=== PATIENT | male | born 1945 | race Caucasian/White ===

== ENCOUNTER 2020-09-16 15:07 | Inpatient (IN) | payer MEDICARE ==
[~2020-09-16] VITALS: Ht 177.8 cm; Wt 119.8 kg
[~2020-09-16 15:07] MED LIST: HYDACE5 PO; LANS30EC; MERC50; METTREX2.5; WARF10 PO; [UNRECOGNIZED DRUG - OTHER]
[2020-09-16 15:38] LABS: BASOPHILS ABSOLUTE AUTO 0.02 K/mm3 (0.00-0.23); BASOPHILS PERCENT AUTO 0 % (0-2); EOSINOPHILS ABSOLUTE AUTO 0.01 K/mm3 (0.00-0.68); EOSINOPHILS PERCENT AUTO 0 % (0-6); Hematocrit 42.1 % (37.0-53.0); Hemoglobin 13.4 g/dL (13.5-17.5); IMMATURE GRAN ABSOLUTE AUTO 0.08 K/mm3 (0.00-0.10); IMMATURE GRAN PERCENT AUTO 1 % (0-1); LYMPHOCYTES PERCENT AUTO 13 % (21-46); MONOCYTES ABSOLUTE AUTO 0.45 K/mm3 (0.16-1.47); MONOCYTES PERCENT AUTO 6 % (4-13); Mean Corpuscular HGB 28.2 pg (26.0-34.0); Mean Corpuscular HGB Conc 31.8 g/dL (31.5-36.5); Mean Corpuscular Volume 89 fL (80-100); Mean Platelet Volume 11.4 fL (9.1-12.4); NEUTROPHILS ABSOLUTE AUTO 6.03 K/mm3 (1.96-9.15); NEUTROPHILS PERCENT AUTO 79 % (41-73); Platelet Count 197 K/mm3 (150-400); RDW Coefficient Variation 14.6 % (11.7-14.2); Red Blood Cell Count 4.75 M/mm3 (4.30-5.90); White Blood Cell Count 7.59 K/mm3 (4.00-11.30)
[2020-09-16 16:00] LABS: Alanine Aminotransfer (ALT/SGP 37 U/L (12-78); Albumin, Blood 2.9 g/dL (3.4-5.0); Albumin/Globulin Ratio 0.8 (0.8-1.8); Alk Phos 61 U/L (50-136); Anion Gap 7 mmol/L (6-16); Aspartate Aminotrans (AST/SGOT 69 U/L (12-37); Bilirubin, Total 1.3 mg/dL (0.1-1.0); Blood Urea Nitrogen 23 mg/dL (8-24); Bun/Creatinine Ratio 20.7 (12.0-20.0); CO2, Blood 25 mmol/L (21-32); Chloride, Blood 105 mmol/L (98-108); Creatinine, Blood 1.11 mg/dL (0.60-1.20); Globulin, Blood 3.5 g/dL (2.2-4.0); Glomerular Filtration Rate >60 (60-); Glucose, Blood 104 mg/dL (70-99); Potassium, Blood 4.2 mmol/L (3.5-5.5); Sodium, Blood 137 mmol/L (136-145); Total Protein, Blood 6.4 g/dL (6.4-8.2)
[2020-09-16] MEDS ORDERED: METO100ER PO (18:20)
[2020-09-16] MEDS ORDERED: ZOCOR20 MG PO (18:21)
[2020-09-16 19:16] LABS: Prothrombin Time Results 63.4 Sec (9.7-11.5)
[2020-09-16 19:22] LABS: International Normalized Ratio 6.59
[2020-09-16] MEDS ORDERED: AMOX500 PO (19:25)
--- NOTE | 2020-09-17 01:03 | NUR ---
UPDATE DR MURILLO WAS NOTIFED AT APPROX 9662 THAT PATIENT'S HEART RATE WAS TRENDING IN THE 140'S. ORDER RECEIVED.
[2020-09-17 04:38] LABS: BASOPHILS ABSOLUTE AUTO 0.01 K/mm3 (0.00-0.23); BASOPHILS PERCENT AUTO 0 % (0-2); EOSINOPHILS ABSOLUTE AUTO 0.01 K/mm3 (0.00-0.68); EOSINOPHILS PERCENT AUTO 0 % (0-6); Hematocrit 40.6 % (37.0-53.0); Hemoglobin 13.1 g/dL (13.5-17.5); IMMATURE GRAN ABSOLUTE AUTO 0.08 K/mm3 (0.00-0.10); IMMATURE GRAN PERCENT AUTO 1 % (0-1); LYMPHOCYTES ABSOLUTE AUTO 0.67 K/mm3 (0.84-5.20); LYMPHOCYTES PERCENT AUTO 8 % (21-46); MONOCYTES ABSOLUTE AUTO 0.31 K/mm3 (0.16-1.47); MONOCYTES PERCENT AUTO 4 % (4-13); Mean Corpuscular HGB 28.2 pg (26.0-34.0); Mean Corpuscular HGB Conc 32.3 g/dL (31.5-36.5); Mean Corpuscular Volume 87 fL (80-100); Mean Platelet Volume 11.1 fL (9.1-12.4); NEUTROPHILS ABSOLUTE AUTO 7.31 K/mm3 (1.96-9.15); NEUTROPHILS PERCENT AUTO 87 % (41-73); Platelet Count 203 K/mm3 (150-400); RDW Coefficient Variation 14.6 % (11.7-14.2); RDW Standard Deviation 47.4 fL (35.1-46.3); Red Blood Cell Count 4.65 M/mm3 (4.30-5.90); White Blood Cell Count 8.39 K/mm3 (4.00-11.30)
[2020-09-17 04:58] LABS: Alanine Aminotransfer (ALT/SGP 38 U/L (12-78); Albumin, Blood 2.9 g/dL (3.4-5.0); Albumin/Globulin Ratio 0.9 (0.8-1.8); Alk Phos 64 U/L (50-136); Anion Gap 10 mmol/L (6-16); Aspartate Aminotrans (AST/SGOT 60 U/L (12-37); Bilirubin, Total 1.2 mg/dL (0.1-1.0); Blood Urea Nitrogen 19 mg/dL (8-24); Bun/Creatinine Ratio 19.2 (12.0-20.0); CO2, Blood 22 mmol/L (21-32); Calcium, Blood 8.1 mg/dL (8.5-10.1); Chloride, Blood 107 mmol/L (98-108); Creatinine, Blood 0.99 mg/dL (0.60-1.20); Globulin, Blood 3.4 g/dL (2.2-4.0); Glomerular Filtration Rate >60 (60-); Glucose, Blood 148 mg/dL (70-99); Potassium, Blood 4.2 mmol/L (3.5-5.5); Sodium, Blood 139 mmol/L (136-145); Total Protein, Blood 6.3 g/dL (6.4-8.2)
--- NOTE | 2020-09-17 07:34 | NUR ---
ADMIT NOTE/SHIFT SUMMARY PATIENT ARRIVED TO THE UNIT EARLIER THIS SHIFT FROM THE ER, PATIENT WAS ABLE TO TRANSFER SELF FROM THE GURNEY TO THE BED WITH SBA. PATIENT ON 6L UPON ARRIVAL TO THE UNIT. PATIENT SETTLED IN AND ORIENTED TO THE ROOM, UNIT, AND CALL LIGHT. PATIENT APPEARED TO NAP ON AND OFF THROUGHOUT THE NIGHT. PATIENT WOULD OCCATIONALLY ACCIDENTLY REMOVE O2, PATIENT ABLE TO REPLACE ON HIS OWN OR STAFF WOULD ASSIST EACH TIME. CONTINUOUS BIOX IN PLACE. PATIENT VERY CHEERFL AND PLEASENT. PATIENT REMAINS ON 6L O2. CARDIZEM GTT AT 20 PER ORDERS. HEART RATE HAS APPEARED TO DECREASE TO THE ONE TEENS. REPORT GIVEN TO ONCOMING RN.
--- NOTE | 2020-09-17 18:43 | NUR ---
SUMMARY PT HAS BEEN A&O X4. HE IS CURRENTLY ON HIGH DANIELLE NC @ 8L, SPO2 91% WHICH IS AN INCREASE FROM 6L THIS AM. RESP LABORED WITH ACTIVITY,TACHYPNEA NOTED AT REST, COARSE, DIMINISHED THROUGH BASES. PRONE POSITION STRONGLY ENC, PT REFUSED AT THIS TIME, EDUCATION PROVIDED. PT DENIES SOB/CHEST PRESSURE OR PAIN. HR REMAINS BETWEEN 90-130 PER MONITOR. CARDIZEM GTT INFUSING @ CONTINUED RATE OF 20 MG/HR, VSS. SCANT AMOUNT OF [place] BLOOD REPORTED BY PT ON TISSUE AFTER "COUGHING" PT ENC TO SAVE ALL BLOODY TISSUE FOR THE NURSE TO EVALUATE. PT IS TOLERATING SMALL AMOUNTS OF PO INTAKE. ZOFRAN GIVEN X1 PER PT REQUEST. WCTM AT THIS TIME. REPORT WILL BE GIVEN TO NOC RN. CALL LIGHT IN REACH.
--- NOTE | 2020-09-18 00:53 | NUR ---
UPDATE PATIENT'S OXYGENATION REQUIRMENTS HAVE BEEN INCREASING THROUGHOUT THE NIGHT. PATIENT CURRENTLY ON 15L VIA HIGH FLOW N/C WITH OXYGEN SATURATION AT 88-89%. RESPIRTORY THERAPY PUTTING PATIENT ON AN AIRVO. DR DC NOTIFIED OF THE TRANSITION TO AIRVO. PATIENT CURRENTLY RESTING IN BED, ATTEMPTING TO SLEEP.
[2020-09-18 04:31] LABS: Alanine Aminotransfer (ALT/SGP 38 U/L (12-78); Albumin, Blood 2.7 g/dL (3.4-5.0); Albumin/Globulin Ratio 0.9 (0.8-1.8); Alk Phos 60 U/L (50-136); Anion Gap 8 mmol/L (6-16); Aspartate Aminotrans (AST/SGOT 45 U/L (12-37); Bilirubin, Total 0.9 mg/dL (0.1-1.0); Blood Urea Nitrogen 28 mg/dL (8-24); Bun/Creatinine Ratio 25.9 (12.0-20.0); CO2, Blood 24 mmol/L (21-32); Calcium, Blood 7.9 mg/dL (8.5-10.1); Chloride, Blood 106 mmol/L (98-108); Creatinine, Blood 1.08 mg/dL (0.60-1.20); Glomerular Filtration Rate >60 (60-); Glucose, Blood 211 mg/dL (70-99); Potassium, Blood 3.8 mmol/L (3.5-5.5); Sodium, Blood 138 mmol/L (136-145); Total Protein, Blood 5.7 g/dL (6.4-8.2)
[2020-09-18 04:33] LABS: Prothrombin Time Results 74.1 Sec (9.7-11.5)
[2020-09-18 04:36] LABS: International Normalized Ratio 7.78
--- NOTE | 2020-09-18 05:33 | NUR ---
CRITICAL INR DR DC NOTIFIED OF PATIENT'S CRITICAL INR LEVEL THIS MORNING. DR DC SATED THAT BLOOD THINNERS WILL CONTINUE TO BE HELD. NO OTHER ORDERS GIVEN AT THIS TIME.
--- NOTE | 2020-09-18 07:23 | NUR ---
SHIFT SUMMARY PATIENT PLEASENT AND COOPERATIVE THROUGHOUT THE NIGHT. PATIENT UP IN THE RECLINER FOR SEVERAL HOURS AT THE BEGINNING OF THE SHIFT, THEN MOVED BACK TO BED. PATIENT APPEARED TO NAP ON AND OFF WELL THROUGHOUT THE NIGHT. PATIENT INDEPENDENT TO SITTING UP AT THE EDGE OF THE BED PRN. PATIENT CONTINUES TO BE ON THE AIRVO THIS MORNING AT 30L AND 92% FIO2. CONTINUOUS BIOX IN PLACE. REPORT GIVEN TO ONCOMING RN.
--- NOTE | 2020-09-18 18:35 | NUR ---
SUMMARY PT REMAINS A&O X4, VSS. CURRENTLY ON 30 L O2 FIO2 85%, SPO2 >91%. CARDIZEM GTT INFUSING @ 15 MG/HR, HR 90'S-120'S, DENIES CP/PRESSURE. PT HAS BEEN UP IN THE BEDSIDE CHAIR WITH FEET ELEVATED MAJORITY OF THE DAY. TOLERATING PO INTAKE, VOIDING WNL. CALLS FOR ASSISTANCE PRN. NO OTHER ACUTE CHANGES NOTED. PT IS RESTING IN BED AT THIS TIME. CALL LIGHT IN REACH.
[2020-09-19 04:40] LABS: Anion Gap 9 mmol/L (6-16); Blood Urea Nitrogen 29 mg/dL (8-24); Bun/Creatinine Ratio 26.9 (12.0-20.0); CO2, Blood 23 mmol/L (21-32); Chloride, Blood 102 mmol/L (98-108); Creatinine, Blood 1.08 mg/dL (0.60-1.20); Glomerular Filtration Rate >60 (60-); Glucose, Blood 196 mg/dL (70-99); Potassium, Blood 4.1 mmol/L (3.5-5.5); Sodium, Blood 134 mmol/L (136-145)
[2020-09-19 04:41] LABS: Prothrombin Time Results 69.2 Sec (9.7-11.5)
[2020-09-19 04:48] LABS: International Normalized Ratio 7.23
--- NOTE | 2020-09-19 06:04 | NUR ---
SHIFT SUMMARY PT RESTED THROUGHOUT NIGHT. ALERT AND ORIENTED - ABLE TO MAKE NEEDS KNOWN. TELE AFIB 110'S-130'S. CARD GTT RUNNING AT 15ML/HR. SATS >87% ON AIRVO 40L/89% - C/O DYSPNEA, RT GAVE BREATHING TX WITH IMPROVEMENT. NO C/O PAIN. TURNS IN BED SELF. VOIDS TO URINAL - 300ML UOP. NO BM. VSS. CALL LIGHT WITHIN REACH, BED IN LOWEST POSITION. WILL CONTINUE TO MONITOR.
--- NOTE | 2020-09-19 10:23 | NUR ---
ASSUMED CARE OF PT AT THIS TIME FROM JENNA MADERA.
--- NOTE | 2020-09-19 12:51 | NUR ---
COGNOS TM1 DEVELOPER AT BEDSIDE.
--- NOTE | 2020-09-19 18:30 | NUR ---
PT SUMMARY: PT REMAINS ON AIRVO 30L 85% O2 SOB/ WITH EXERTION TAKES TIME TO RECOVER, HAD SOME BLOODY SPUTUM THIS AM AFTER BREATHING TX, PT STATED IT WAS CLEAR AFTER. DR RANGEL IS AWARE. BP SYSTOLIC 120'S, HRR 90-120'S HR INCREASES WITH EXERTION WELL CARDIZEM GTT STILL RUNNING AT 15MG/HR, PT DENIES CHEST PAIN/PRESSURE FOR THE SHIFT. PT SBA FOR TRANSFERS USES COMMODE FOR TOILETING, THIRD DOSE OF REMDEMSIVIR TO BE GIVEN TONIGHT. NO OTHER ISSUES REPORTED, PT REMAINS ALERT AND ORIENTED, CALLS APPROPRIATELY, WILL REPORT TO ONCOMING SHIFT
[2020-09-20 06:20] LABS: Anion Gap 8 mmol/L (6-16); Blood Urea Nitrogen 30 mg/dL (8-24); CO2, Blood 24 mmol/L (21-32); Calcium, Blood 8.3 mg/dL (8.5-10.1); Chloride, Blood 100 mmol/L (98-108); Creatinine, Blood 1.07 mg/dL (0.60-1.20); Glomerular Filtration Rate >60 (60-); Glucose, Blood 227 mg/dL (70-99); Potassium, Blood 4.4 mmol/L (3.5-5.5); Prothrombin Time Results 51.4 Sec (9.7-11.5); Sodium, Blood 132 mmol/L (136-145)
[2020-09-20 06:24] LABS: International Normalized Ratio 5.28
--- NOTE | 2020-09-20 07:18 | NUR ---
SHIFT SUMMARY PT RESTED WELL THROUGH MOST OF NIGHT. ALERT AND ORIENTED, ABLE TO MAKE NEEDS KNOWN. SATS >90% ON AIRVO - NO ADJUSTMENTS NEEDED. TELE AFIB - RNAGING FROM 100'S TO 130'S - CARD GTT RUNNING AT 15MG/HR. PT STAND BY ASSIST TO COMMODE - UNABLE TO HAVE BM, BUT IS PASSING GAS. NO C/O PAIN. VSS. CALL LIGHT WITHIN REACH, BED IN LOWEST POSITION. WILL CONTINUE TO MONITOR
--- NOTE | 2020-09-20 18:37 | NUR ---
PT SUMMARY; NO ACUTE CHANGE FOR THE SHIFT PT REMAINS ON 60L 51% OF O2 VIA AIRVO, SATS 90-95% STILL GETS SOB WITH EXERTION PT STATED WAS BETTER AFTER IV LASIX WAS GIVEN. HRR REMAINED AFIB CARDIZEM GTT DC'D PT STARTED ON PO METOPROLOL 25MG RATE NOW SUSTAINING 80-110'S, PT DENIES CHEST PAIN/PRESSURE, BP STABLE, AFEBRILE. PT STAYED UP IN THE RECLINER ALL SHIFT PT STATED HE'S MORE COMFORTABLE TO SIT UP IN THE RECLINER THAN IN BED PT TO TRY TO PRONE TONIGHT. REMDESIVIR LAST 4/4 TO BE GIVEN TONIGHT. PT C/O CONSTIPATION WAS ADDRESSED TO DR BARTHOLOMEW PT STARTED ON STOOL SOFTENER AND ALSO OFFERED PRUNE JUICE WITH DINNER, NO BM REPORTED YET. NO OTHER ISSUES ECNOUNTERED, PT ABLE TO MAKE NEEDS KNOWN, CALLS APPROPRIATELY WILL REPORT TO ONCOMING SHIFT
--- NOTE | 2020-09-21 06:49 | NUR ---
SHIFT SUMMARY PATIENT ALERT AND ORIENTED X3-4 AT BEGINNING OF SHIFT. SHIFT PROGRESSED PATIENT BECAME CONFUSED. PATIENT USES URINAL AND BSC. PATIENT STATED HE SAW ANTS ON THE FLOOR AND COULD NO LONGER STATE WHERE HE WAS. PATIENT STARTED PULLING OFF TELE MONITOR. BED ALARM, AND CHAIR ALARM USED. PATIENT TRIED TO LEAVE ROOM AT ONE POINT. BLOOD GLUCOSE CHECKED, 207. VSS, 02 SATS >92% ON AIRVO @60L 50%FIO2. PATIENT HR A.FIB 90s-110 WOULD INCREASE WITH ACTIVITY. CALL LIGHT IN REACH.
[2020-09-21 06:51] LABS: Anion Gap 7 mmol/L (6-16); Blood Urea Nitrogen 30 mg/dL (8-24); Bun/Creatinine Ratio 30.6 (12.0-20.0); CO2, Blood 25 mmol/L (21-32); Calcium, Blood 8.3 mg/dL (8.5-10.1); Chloride, Blood 102 mmol/L (98-108); Creatinine, Blood 0.98 mg/dL (0.60-1.20); Glomerular Filtration Rate >60 (60-); Glucose, Blood 187 mg/dL (70-99); Potassium, Blood 4.3 mmol/L (3.5-5.5); Sodium, Blood 134 mmol/L (136-145)
[2020-09-21 06:58] LABS: Prothrombin Time Results 49.6 Sec (9.7-11.5)
[2020-09-21 07:21] LABS: International Normalized Ratio 5.08
--- NOTE | 2020-09-21 15:01 | NUR ---
REPORT GIVEN TO VAUGHN WEST IN ICU.
[2020-09-21 16:05] LABS: Source, Urine Catheter
[2020-09-21 16:09] LABS: Appearance, Urine Clear (Clear); Bilirubin, Urine Neg (Neg); Blood, Urine 3+ (Neg); Color, Urine Yellow (P-Yellow); Glucose Qualitative, Urine Neg (Neg); Ketones, Urine Neg (Neg); Leukocyte Esterase, Urine Neg (Neg); Nitrite, Urine Neg (Neg); Protein, Urine Neg (Neg); Specific Gravity, Urine 1.015 (1.003-1.022); Urobilinogen, Urine NORM (Normal)
[2020-09-21 16:15] LABS: White Blood Cells, Urine 0-2 /hpf (0-5)
[2020-09-21 16:16] LABS: Bacteria Rare /hpf; Renal Epithelial Rare /hpf (0-Rare); Squamous Epithelial Cells Not Seen /hpf (Few)
--- NOTE | 2020-09-21 16:58 | NUR ---
PT TO ICU 6 FROM PCU 12 AT 1520, REPORT FROM JENNA OLEA. PT ARRIVES CONFUSED, PULLING AT LINES/CORDS AND ATTEMPTING TO GET OUT OF BED. PT BELIEVES HE IS AT THE "PUB" AND IS ANGRY THAT THIS NURSE WON'T "BRING HIM A BEER". PT VERY SUSPICIOUS AND BELIEVES HE IS BEING "HELD AGAINST HIS WILL" DESPITE REORIENTATION AND REASSURANCE. PT VERY TACHYPNEIC AND REQUIRING AIRVO 60L, 52% TO MAINTAIN SATS>90%. PT HAD PRODUCTIVE COUGH SHOWING WITH SPUTUM SUCTIONED BY GEETA, THICK BLOOD TINGED SPUTUM. PT PLACED IN BILATERAL SOFT WRIST RESTRAINTS FOR PATIENT SAFETY AND TO PROTECT LINES/CORDS. PRECEDEX GTT STARTED, CURRENTLY INFUSING AT 0.7 MCG/KG/MIN. TEMP VARGAS PATENT AND DRAINING TO GRAVITY, BLOOD TINGED URINARY OUTPUT D/T PT ATTEMPTING TO PULL VARGAS OUT. PT CURRENTLY RESTING QUIETLY, BED IN LOW/LOCKED POSITION, CURTAIN OPEN.
--- NOTE | 2020-09-21 18:46 | NUR ---
SHIFT SUMMARY NO CHANGES SINCE TRANSFER TO ICU FROM PCU. PT RESTING COMFORTABLY WITH PRECEDEX INFUSING @ 0.4 MCG/KG/HR. RESTRAINTS REMAINS IN PLACE FOR SAFETY. SATS>90% ON AIRVO 60L, 52%. SEE TRANSFER NOTE. WILL REPORT TO ONCOMING NURSE.
--- NOTE | 2020-09-21 19:30 | NUR ---
ASSUMING PT CARE: REPORT RECEIVED FROM JENNA MENDES. PT LAYING IN BED, SLEEPING W/ RR EVEN & UNLABORED, HOWEVER TACHYPNEIC. PT DOES NOT RESPOND WHEN STAFF ENTERS ROOM OR TO HIS NAME. +RECOILS FROM PAIN. LOUDLY GRUNTS & MOANS DURING PATTERN HANGER BUT DOES NOT AWAKE. VS STABLE @ THIS TIME. WILL CONTINUE TO MONITOR & REPORT APPROPRIATE.
[2020-09-22 04:08] LABS: BASOPHILS ABSOLUTE AUTO 0.03 K/mm3 (0.00-0.23); BASOPHILS PERCENT AUTO 0 % (0-2); EOSINOPHILS PERCENT AUTO 0 % (0-6); Hematocrit 39.4 % (37.0-53.0); Hemoglobin 13.2 g/dL (13.5-17.5); IMMATURE GRAN ABSOLUTE AUTO 0.21 K/mm3 (0.00-0.10); IMMATURE GRAN PERCENT AUTO 2 % (0-1); LYMPHOCYTES PERCENT AUTO 2 % (21-46); MONOCYTES ABSOLUTE AUTO 0.41 K/mm3 (0.16-1.47); MONOCYTES PERCENT AUTO 4 % (4-13); Mean Corpuscular HGB 28.4 pg (26.0-34.0); Mean Corpuscular HGB Conc 33.5 g/dL (31.5-36.5); Mean Corpuscular Volume 85 fL (80-100); Mean Platelet Volume 10.8 fL (9.1-12.4); NEUTROPHILS ABSOLUTE AUTO 9.23 K/mm3 (1.96-9.15); NEUTROPHILS PERCENT AUTO 92 % (41-73); Platelet Count 216 K/mm3 (150-400); RDW Coefficient Variation 14.5 % (11.7-14.2); RDW Standard Deviation 44.8 fL (35.1-46.3); Red Blood Cell Count 4.64 M/mm3 (4.30-5.90); White Blood Cell Count 10.08 K/mm3 (4.00-11.30)
[2020-09-22 04:27] LABS: Anion Gap 5 mmol/L (6-16); Blood Urea Nitrogen 30 mg/dL (8-24); Bun/Creatinine Ratio 32.4 (12.0-20.0); CO2, Blood 29 mmol/L (21-32); Calcium, Blood 8.1 mg/dL (8.5-10.1); Chloride, Blood 106 mmol/L (98-108); Creatinine, Blood 0.93 mg/dL (0.60-1.20); Glomerular Filtration Rate >60 (60-); Glucose, Blood 217 mg/dL (70-99); Potassium, Blood 4.6 mmol/L (3.5-5.5); Sodium, Blood 140 mmol/L (136-145)
[2020-09-22 04:30] LABS: Prothrombin Time Results 42.6 Sec (9.7-11.5)
[2020-09-22 04:54] LABS: International Normalized Ratio 4.33
--- NOTE | 2020-09-22 06:40 | NUR ---
SHIFT SUMMARY: PT CONTINUES TO BE SEDATED W/ PRECEDEX GTT @ 0.4mcg/kg/hr. NO CHANGES IN MENTATION, PT RESPONSIVE ONLY TO NOXIOUS STIMULI, RECOILING IN PAIN & OCCASIONALLY MOANING. PT RESTED WELL THROUGHOUT THE SHIFT, REQUIRING PRN ATIVAN ONLY ONCE FOR AGITATION. RESP STATUS & AIRVO SETTINGS UNCHANGED; 52% ON 60L W/ SPO2 >90%. 1,100ml URINE OUTPUT. WILL CONTINUE TO MONITOR UNTIL REPORT OFF TO ONCOMING RN.
--- NOTE | 2020-09-22 08:32 | NUR ---
pt laying in bed, sedated, moans a bit when touched, v.s. stable. continues on presidex gtt. lungs are course t/o, resp even and unlabored, no cough noted, airvo in place, sats are 93%, hrirr, valve clicking, pt is afib per montior see strip, 2-3+ edema noted to b/l le, ppp faint, cap refill <3sec, vs stable, afebrile, iv sites are clear and patent, btx4, hypoactive, abd round soft, graham cath draining antony urine, skin has dark b/l le, very dry, soft wrist restraints in place, call light in reach.
--- NOTE | 2020-09-22 10:49 | NUR ---
repositioned pt and turned precidex down to 0.3mg, pt became agitated and sats dropped to 87 to 88%, called RT, he turned the airvo up and pt is settling down, sats 96% at this time, call light in reach.
[2020-09-22 12:39] LABS: PO2 Arterial 101 mmHg (80-100); pH Blood Arterial 7.49 (7.35-7.45)
--- NOTE | 2020-09-22 12:43 | NUR ---
in to see pt, wants a dobhoff placed for librium administration. turned up precidex to 0.7mg and gave 2mg ativan, was not able to place dobhoff as he was fighting too much with two people attempting. he is more relaxed now, sats are 97%, is waiting on blood gas results before deciding on intubation, will wait for that to attempt again. pt has been repositioned. call light in reach.
--- NOTE | 2020-09-22 16:30 | NUR ---
REPOSITIONED PT. HE TOLERATED MOVEMENT THIS TIME. SATS MAINTAINED IN THE 90S, CALL LIGHT IN REACH.
--- NOTE | 2020-09-22 18:05 | NUR ---
PT HAS REMAINED RESTING WITH PRECEDEX INFUSING AT 1MG/HR, WAKES TO STIMULAS, V.S. STABLE. CALL LIGHT IN REACH.
[2020-09-23 03:50] LABS: BASOPHILS ABSOLUTE AUTO 0.07 K/mm3 (0.00-0.23); BASOPHILS PERCENT AUTO 1 % (0-2); EOSINOPHILS PERCENT AUTO 0 % (0-6); Hematocrit 45.2 % (37.0-53.0); Hemoglobin 14.9 g/dL (13.5-17.5); IMMATURE GRAN ABSOLUTE AUTO 0.38 K/mm3 (0.00-0.10); IMMATURE GRAN PERCENT AUTO 3 % (0-1); LYMPHOCYTES ABSOLUTE AUTO 0.38 K/mm3 (0.84-5.20); LYMPHOCYTES PERCENT AUTO 3 % (21-46); MONOCYTES ABSOLUTE AUTO 0.71 K/mm3 (0.16-1.47); MONOCYTES PERCENT AUTO 5 % (4-13); Mean Corpuscular HGB 28.2 pg (26.0-34.0); Mean Corpuscular Volume 86 fL (80-100); Mean Platelet Volume 10.7 fL (9.1-12.4); NEUTROPHILS ABSOLUTE AUTO 12.33 K/mm3 (1.96-9.15); NEUTROPHILS PERCENT AUTO 89 % (41-73); Platelet Count 284 K/mm3 (150-400); RDW Coefficient Variation 14.5 % (11.7-14.2); RDW Standard Deviation 45.1 fL (35.1-46.3); Red Blood Cell Count 5.28 M/mm3 (4.30-5.90); White Blood Cell Count 13.87 K/mm3 (4.00-11.30)
[2020-09-23 04:09] LABS: Anion Gap 5 mmol/L (6-16); Blood Urea Nitrogen 35 mg/dL (8-24); Bun/Creatinine Ratio 35.2 (12.0-20.0); CO2, Blood 31 mmol/L (21-32); Calcium, Blood 8.4 mg/dL (8.5-10.1); Chloride, Blood 109 mmol/L (98-108); Glomerular Filtration Rate >60 (60-); Glucose, Blood 177 mg/dL (70-99); Magnesium, Blood 2.5 mg/dL (1.6-2.4); Phosphorus, Blood 3.9 mg/dL (2.5-4.9); Potassium, Blood 4.7 mmol/L (3.5-5.5); Sodium, Blood 145 mmol/L (136-145)
--- NOTE | 2020-09-23 06:27 | NUR ---
SHIFT SUMMARY: PT REMAINS SEDATED W/ PRECEDEX GTT @ 1.2mcg/kg/hr. AIRVOV @ 63%, 60L WHICH IS A SLIGHT INCREASE FROM THE START OF SHIFT. WHEN AGITATED, PT BECOMES HYPOXIC W/ BIOX 85-89%. PT REQUIRED PRN ATIVAN THROUGHOUT THE NIGHT FOR AGITATION & WHEN PT BEGINS TO AWAKE, HE BECOMES TREMULOUS. ALL OF WHICH WAS RESOLVED W/ ATIVAN. PT RESTED RELATIVELY WELL THROUGHOUT THE NIGHT. HE CONTINUES TO VERY DIFFICULT TO REPOSITION HE FAVORS THE R SIDE & WILL NOT LEAN OR BEND TOWARDS THE LEFT. NO ACUTE CHANGES.
--- NOTE | 2020-09-23 08:30 | NUR ---
INITIAL ASSESSMENT PATIENT SLEEPING QUIETLY IN BED UPON ENTERING ROOM. PATIENT ON PRECEDEX DRIP. PATIENT RESPONDS SOMEWHAT WITH GRIMACING TO NOXIOUS STIMULI AND NURSING CARE. PATIENT DOES NOT MOVE EXTREMITIES. NO SIGNS OF PAIN NOTED. PATIENT HAS TEMP OF 100.4 DEGREES FAHRENHEIT. UNABLE TO ASSESS CIWA AT THIS TIME BECAUSE OF SEDATION LEVEL. LUNGS COARSE AND DIMINISHED THROUGHOUT. NO COUGH NOTED. PATIENT SATTING 90% AND GREATER ON AIRVO 60 L AND 60% FIO2. PATIENT IN A.FIB, HR 90S TO LOW 100S. SBP 1-TEENS TO 120S. RIGHT ANKLE 1+ EDEMA NOTED. ABDOMEN SEVERELY DISTENDED. NORMOACTIVE BS NOTED. DOBHOFF IN PLACE; CLAMPED. DATE OF LAST BM ON THE . TEMP PROBE VARGAS IN PLACE DRAINING KEEGAN/ CRANBERRY COLORED URINE. NIGHT RN REPORTED THAT PATIENT HAD TUGGED ON VARGAS CATHETER. SKIN DRY/ SCALING. BED LOW, CALL LIGHT IN REACH. WILL CONTINUE TO MONITOR PATIENT FREQUENTLY THROUGHOUT SHIFT.
--- NOTE | 2020-09-23 12:57 | NUR ---
PATIENT HAS TEMP OF 101.1 DEGREES FAHRENHEIT. PATIENT GIVEN PRN TYLENOL. FAN PLACED ON PATIENT. CIWA UNABLE TO BE ASSESSED AT THIS TIME PATIENT REMAINS SEDATED ON PRECEDEX AT 1.0 MCG/ KG/ HOUR. DR. DICK WOULD LIKE TO KEEP PRECEDEX AT THIS RATE. HR IN THE 90S TO LOW 100S. SBP 90S TO 130S. BLOOD SUGAR OF 181; COVERAGE GIVEN.
--- NOTE | 2020-09-23 16:45 | NUR ---
PATIENT HAS TEMP OF 100.2 DEGREES FAHRENHEIT. PATIENT IS NOW LOCALIZING PAIN TO UPPER EXTREMITIES. FIO2 INCREASED TO 70% FROM 60%. RR 23 TO 33. HR LOW 100S TO 1-TEENS. SBP LOW 100S TO 120S. VHP TF STARTED AT 25 MLS/ HOUR WITH GOAL RATE OF 55 MLS/ HOUR WITH 30 ML WATER FLUSH Q4H. NO OTHER ACUTE CHANGES TO NOTE ON AT THIS TIME. WILL CONTINUE TO MONITOR.
[2020-09-23 18:16] LABS: PCO2 Arterial 39.3 mmHg (35-45); PO2 Arterial 68.4 mmHg (80-100); pH Blood Arterial 7.48 (7.35-7.45)
--- NOTE | 2020-09-23 18:44 | NUR ---
SHIFT SUMMARY PATIENT REMAINED ON PRECEDEX THIS SHIFT RANGING FROM 0.8 TO 1.2 MCG/ KG/ HOUR. PATIENT CURRENTLY ON 1.0 MCG/ KG/ HOUR. PATIENT IS RESPONDING TO PAINFUL STIMULI. PATIENT HAD TMAX OF 101.1 DEGREES FAHRENHEIT. TEMP HAS SINCE COME DOWN SLIGHTLY AFTER GIVING PRN TYLENOL. LUNGS REMAINED COARSE AND DIMINISHED. PATIENT ON AIRVO 60 L AND 60% MOST OF THE SHIFT AND THEN INCREASED TO 70% JUST BEFORE 1700 TO KEEP SATS 90% AND GREATER. PATIENT REMAINED IN A. FIB. CLICK NOTED. HR 90S TO 120S. SBP 90S TO 130S. NO BM THIS SHIFT. VHP TF STARTED AT 25 MLS/ HOUR WITH GOAL RATE OF 55 MLS/ HOUR. PATIENT HAD 2650 MLS OF KEEGAN/ CRANBERRY SEDIMENT COLORED URINE OUT THIS SHIFT. PATIENT RECEIVING SCHEDULED LASIX. NO CHANGE TO SKIN NOTED. PATIENT REPOSITIONED THROUGHOUT SHIFT. PATIENT RECEIVED UNASYN TWICE THIS SHIFT. PATIENT STARTED ON LIBRIUM TO TRY AND GET PRECEDEX DECREASED. PATIENT HAD BEDBATH. BLOOD SUGARS 181 TO 214. BED LOW, CALL LIGHT IN REACH. REPORT WILL BE GIVEN TO ONCOMING IT APPLICATION ADMINISTRATOR NURSE SHORTLY.
--- NOTE | 2020-09-23 21:30 | NUR ---
UPDATE: PT INCREASING IN AGITATION, THRASHING HEAD BACK & FORTH & OFTEN MOANING. RESPIRATIONS INCREASINGLY SHALLOW & RAPID. HR INC TO 120s. SPO2 DEC TO 85%, FiO2 INC TO 93% ON AIRVO. AFTER SEVERAL MINUTES PT RECOVERED. DISCUSSED CHANGES W/ UNDERGROUND MINE SUPERINTENDENT. WILL CONTINUE TO REASSESS & REPORT APPROPRIATE.
--- NOTE | 2020-09-23 23:00 | NUR ---
UPDATE: PT RESP STATUS CONTINUES IN A DOWNWARD TREND. BIOX NOW 92% ON 93% FiO2. RR LABORED, SHALLOW, & AUDIBLY COARSE. THICK, TENACIOUS SECRETIONS, PT UNABLE TO MANAGE SECRETIONS. PRECEDEX FOR SEDATION IS NO LONGER EFFECTIVE PT IS PULLING @ RESTRAINTS, UNABLE TO REST IN BED. MAYELIN UPDATED & DISCUSSED PLAN FOR INTUBATION. DR REDMOND, IN THE ED, TO ARRIVE SHORTLY FOR INTUBATION.
--- NOTE | 2020-09-24 | NUR ---
INTUBATION: DR REDMOND ARRIVES @ 2320 FOR INTUBATION. 20mg ETOMIDATE & 100mg SUCCINYLCHOLINE GIVEN & PT WAS SUCCESSFULLY INTUBATED W/ 8.0 ETT, 24cm @ THE GUMS. RICHI BS AUDIBLE. NO SOUNDS AUDIBLE OVER EPIGASTRUM. +COLOR CHANGE. THICK, BROWN SECRETIONS FROM ETT, SAMPLE SENT TO LAB FOR CULTURE. PROPOFOL GTT STARTED @ 20mcg/kg/min. IMAGING @ BEDSIDE FOR CONFIRMATION CXR. PT APPEARS MUCH MORE COMFORTABLE & TOLERATING WELL.
[2020-09-24 04:21] LABS: BASOPHILS ABSOLUTE AUTO 0.07 K/mm3 (0.00-0.23); BASOPHILS PERCENT AUTO 1 % (0-2); EOSINOPHILS ABSOLUTE AUTO 0.02 K/mm3 (0.00-0.68); EOSINOPHILS PERCENT AUTO 0 % (0-6); Hematocrit 48.1 % (37.0-53.0); Hemoglobin 15.6 g/dL (13.5-17.5); IMMATURE GRAN ABSOLUTE AUTO 0.78 K/mm3 (0.00-0.10); IMMATURE GRAN PERCENT AUTO 5 % (0-1); LYMPHOCYTES ABSOLUTE AUTO 0.49 K/mm3 (0.84-5.20); LYMPHOCYTES PERCENT AUTO 3 % (21-46); MONOCYTES ABSOLUTE AUTO 0.99 K/mm3 (0.16-1.47); MONOCYTES PERCENT AUTO 6 % (4-13); Mean Corpuscular HGB 28.6 pg (26.0-34.0); Mean Corpuscular HGB Conc 32.4 g/dL (31.5-36.5); Mean Corpuscular Volume 88 fL (80-100); Mean Platelet Volume 10.6 fL (9.1-12.4); NEUTROPHILS ABSOLUTE AUTO 13.07 K/mm3 (1.96-9.15); NEUTROPHILS PERCENT AUTO 85 % (41-73); NRBC ABSOLUTE 0.02 K/mm3 (0.00-0.02); NRBC Auto 0.1 /100 WBC (0.0-0.2); Platelet Count 278 K/mm3 (150-400); RDW Coefficient Variation 14.7 % (11.7-14.2); RDW Standard Deviation 46.6 fL (35.1-46.3); Red Blood Cell Count 5.46 M/mm3 (4.30-5.90); White Blood Cell Count 15.42 K/mm3 (4.00-11.30)
[2020-09-24 04:35] LABS: International Normalized Ratio 3.71; Prothrombin Time Results 36.9 Sec (9.7-11.5)
[2020-09-24 05:24] LABS: PCO2 Arterial 35.2 mmHg (35-45); PO2 Arterial 85.2 mmHg (80-100); pH Blood Arterial 7.55 (7.35-7.45)
--- NOTE | 2020-09-24 05:36 | NUR ---
SHIFT SUMMARY: PT IS INTUBATED & SEDATED. VENT: AC 16/500, 8/65%. GTTs: PROPOFOL 10mcg/kg/min, PRECEDEX 1.7mcg/kg/hr. PT FLINCHES SLIGHTLY W/ PAINFUL STIMULI. SECRETIONS HAVE WORSENED THROUGHOUT SHIFT, NOW VERY DARK BROWN, THICK & W/ PLUGS. FREQUENT ORAL CARE GIVEN & SUCTIONING TO MANAGE SECRETIONS, PT TOLERATED WELL. PT'S TEMP RANGING FROM 100-102.2, INITIALLY DEC W/ APAP & UP AGAIN. ICE PACKS PLACED TO AXILLA, GROIN, & NECK, & FAN @ BEDSIDE. WILL GIVE ADDITIONAL TYLENOL SHORTLY. WILL CONTINUE TO MONITOR & REPORT APPROPRIATE.
[2020-09-24 05:59] LABS: Bun/Creatinine Ratio 36.2 (12.0-20.0); Calcium, Blood 8.4 mg/dL (8.5-10.1); Creatinine, Blood 1.27 mg/dL (0.60-1.20); Magnesium, Blood 2.6 mg/dL (1.6-2.4); Phosphorus, Blood 3.9 mg/dL (2.5-4.9); Potassium, Blood 4.6 mmol/L (3.5-5.5)
--- NOTE | 2020-09-24 08:10 | NUR ---
INITIAL ASSESSMENT PATIENT INTUBATED AND ON SEDATION. PATIENT UNRESPONSIVE. SEDATION TITRATED DOWN. PATIENT HAS TEMP OF 101.4 DEGREES FAHRENHEIT. COLD PACKS, FAN, AND WET CLOTH TO BODY AND FACE. PATIENT GIVEN PRN TYLENOL THIS AM. NO SIGNS OF PAIN NOTED. PATIENT ON VENT SETTINGS OF AC 16, TV 500, PEEP 8, AND 55% FIO2. LUNGS WHEEZY THROUGHOUT. MODERATE AMOUNT OF THICK, BROWN SPUTUM BEING SUCTIONED FROM ETT. PATIENT IN A.FIB, HR 90S TO LOW 100S. CLICK NOTED ON AUSCULTATION. SBP 80S TO LOW 100S. 1+ EDEMA NOTED TO R ANKLE. LAST BM ON THE . PRN SUPPOSITORY GIVEN. TF INCREASED TO 40 MLS/ HOUR WITH GOAL RATE OF 50 MLS/ HOUR. TEMP VARGAS IN PLACE DRAINING KEEGAN COLORED URINE. BLE SCALING. BLISTER AND NONBLANCHABLE ERYTHEMA NOTED TO COCCYX. PICS TAKEN AND PLACED IN CHART. NEW MEPILEX PLACED. PRECEDEX INFUSING AT 1.2 MCG/ KG/ HOUR. PROPOFOL PLACED ON SB. PATIENT WILL CONTINUE TO BE MONITORED THROUGHOUT SHIFT.
--- NOTE | 2020-09-24 08:15 | NUR ---
PATIENT'S MOTHER, LUCAS, CALLED TO INFORM THAT PATIENT HAD BEEN INTUBATED ON ICE BAG ASSEMBLER. CALL WENT TO VOICEMAIL. NURSE LEFT MESSAGE ASKING TO CALL NURSE AT [facility] BACK.
--- NOTE | 2020-09-24 10:00 | NUR ---
TF PLACED ON HOLD FOR NOW BY DR. DICK.
[2020-09-24 11:31] LABS: PCO2 Arterial 35.2 mmHg (35-45); PO2 Arterial 78.8 mmHg (80-100); pH Blood Arterial 7.52 (7.35-7.45)
--- NOTE | 2020-09-24 12:00 | NUR ---
PATIENT HAS TEMP OF 100.4 DEGREES FAHRENHEIT. FAN REMAINS ON PATIENT. NEW ICE PACKS PLACED IN AXILLA AND GROIN. PATIENT IS RESPONDING TO NOXIOUS STIMULI. HR 90S TO 130S. SBP 80S TO LOW 100S. LUNGS DIMINISHED. CRACKLES NOTED IN LLL. PEEP DECREASED FROM 8 TO 5. FIO2 DECREASED FROM 55 TO 40%. BLOOD SUGAR OF 230; COVERAGE GIVEN. NO OTHER ACUTE CHANGES TO NOTE ON AT THIS TIME. WILL CONTINUE TO MONITOR.
--- NOTE | 2020-09-24 16:00 | NUR ---
PATIENT HAS TEMP OF 100.0 DEGREES FAHRENHEIT. PATIENT HAS NO SIGNS OF PAIN NOTED. PATIENT ON PRECEDEX AT 1.0 MCG/ KG/ HOUR. PATIENT IS RESPONDING TO NOXIOUS STIMULI/ NURSING CARE WITH GRIMACING OF FACE, TURNING OF HEAD, AND MOVING OF ARMS. HR IN THE 90S. SBP IN THE 90S. VENT SETTINGS REMAIN THE SAME. NO OTHER ACUTE CHANGES TO NOTE ON AT THIS TIME. WILL CONTINUE TO MONITOR.
--- NOTE | 2020-09-24 18:49 | NUR ---
SHIFT SUMMARY PATIENT DECREASED ON SEDATION THIS SHIFT. PATIENT NOW ON PRECEDEX AT 1.0 MCG/ KG/ HOUR AND PROPOFOL ON SB. PATIENT UNRESPONSIVE AT BEGINNING OF SHIFT BUT SINCE SEDATION DECREASED HE HAS BEEN GRIMACING FACE, MOVING HEAD, AND RAISING ARMS TO NOXIOUS STIMULI. PATIENT HAD TMAX OF 101.5 DEGREES FAHRENHEIT. PATIENT GIVEN PRN TYLENOL OT, WELL FAN AND ICE PACKS. PATIENT DECREASED FROM PEEP OF 8 TO 5 AND FIO2 FROM 55% TO 40%. MODERATE TO LARGE AMOUNT OF THICK, BROWN SPUTUM BEING SUCTIONED FROM ETT. PATIENT REMAINED IN A.FIB. HR RANGED FROM 80S TO 130S. SBP RANGED FROM 70S TO 1-TEENS. PATIENT GIVEN OT 1 L NS BOLUS THIS SHIFT AND IS STILL RECEIVING 1 L OF NS AT 100 MLS/ HOUR. NO BM THIS SHIFT. PRN SUPPOSITORY GIVEN. TF INCREASED TO GOAL RATE OF 55 MLS/ HOUR. VARGAS DRAINED 850 MLS OF KEEGAN COLORED URINE. PATIENT REPOSITIONED Q2H. PATIENT RECEIVED 2 DOSES OF UNASYN. SPUTUM, BLOOD CULTURES AND MRSA NARES SWAB SENT TO LAB THIS SHIFT. VANCOMYCIN GIVEN THIS SHIFT. INSULIN COVERAGE INCREASED TO MEDIUM SS. PATIENT APPEARS WITHOUT PAIN OR DISTRESS AT THIS TIME. BED LOW, LIGHT IN REACH. REPORT WILL BE GIVEN TO ASSUMING GEAR MACHINE OPERATOR NURSE SHORTLY.
--- NOTE | 2020-09-24 19:00 | NUR ---
ASSUMED CARE NOTE: ASSUMED CARE OF PT AT 1900, RECEVIED REPORT FROM ZEESHAN WEST. PT IS VENTED AT SEDATED WITH PRECEDEX AT 1MCG/KG/HR. PT MOVING ALL EXTREMITES, HOWEVER TOLERATING THE VENT. PT HR IN THE 150-170'S , AFIB WITH RVR, LOPRESSOR GIVEN WITH NO EFFECT. AT BEDSIDE, INSTUCTING ORDERS. VENT SETTINGS AC16/500/5/50% , SPO2 ABOVE 90% PT IS HAVING THICK YELLOW BROWN SECRETIONS VIA ETT. PT IS RECEVING TUBE FEED VIA DOBHOFF, RATE 55ML/HR WITH 30ML Q4hr FLUSHES. PT'S ABDOMEN DISTENDED, SOFT, NON-TENDER. HYPOACTIVE BT HEARD IN ALL QUADRANTS. VARGAS PATENT DRAINING TO GRAVITY.
--- NOTE | 2020-09-24 20:01 | NUR ---
PT HR IN THE 140-170 AND MAINTAINING . LOPRESSOR GIVEN ORDERED BY , HR DECREASED TO 130'S CARDIZEM ORDERED. IF CARDIZEM DROPS BP , THEN AMIODARONE WILL BE STARTED . PROPOFOL STARTED PER MAYELIN, PT MOVING ALL EXTREMITES , HOWEVER TOLERATING THE VENT. PROPOFOL AT 25MCG/KG/MIN
--- NOTE | 2020-09-24 21:06 | NUR ---
AMIO DRIP BOLUS INITIATED, CARDIZEM DRIP STOPPED IT WAS NOT EFFECTIVE. HR IN THE 130'S AT THIS TIME. PROPOFOL STOPPED FOR BP SUPPORT. PT MANAGING THE VENT WELL WITH PRECEDEX AT 1MCG/KG/HR. CURRENT BP 99/60 MAP 65
--- NOTE | 2020-09-24 21:22 | NUR ---
AMIO BOLUS GIVEN WITH GOOD EFFECT, HR BETWEEN 90-110. BP STABLE AT THIS TIME. AMIO DRIP BEING DELIVERED AT 1MG/MIN
[2020-09-25 04:29] LABS: Base Excess Venous 4.8 mmol/L; PCO2 Venous 32.9 mmHg (38-42); PO2 Venous 101 mmHg (38-42); pH Blood Venous 7.53 (7.34-7.37)
--- NOTE | 2020-09-25 05:04 | NUR ---
PT BP LOW SBP IN THE 70'S, MAP IN THE 50'S. CALLED DR. DICK ORDERS FOR 1L NS BOLUS GIVEN, WELL MAINTAINCE FLUIDS AT 100ML/HR.
[2020-09-25 05:18] LABS: BASOPHILS ABSOLUTE AUTO 0.03 K/mm3 (0.00-0.23); BASOPHILS PERCENT AUTO 0 % (0-2); EOSINOPHILS ABSOLUTE AUTO 0.03 K/mm3 (0.00-0.68); EOSINOPHILS PERCENT AUTO 0 % (0-6); Hematocrit 42.3 % (37.0-53.0); Hemoglobin 13.6 g/dL (13.5-17.5); IMMATURE GRAN PERCENT AUTO 2 % (0-1); LYMPHOCYTES ABSOLUTE AUTO 0.43 K/mm3 (0.84-5.20); LYMPHOCYTES PERCENT AUTO 4 % (21-46); MONOCYTES ABSOLUTE AUTO 0.61 K/mm3 (0.16-1.47); MONOCYTES PERCENT AUTO 5 % (4-13); Mean Corpuscular HGB 28.3 pg (26.0-34.0); Mean Corpuscular HGB Conc 32.2 g/dL (31.5-36.5); Mean Corpuscular Volume 88 fL (80-100); Mean Platelet Volume 11.3 fL (9.1-12.4); NEUTROPHILS ABSOLUTE AUTO 10.19 K/mm3 (1.96-9.15); NEUTROPHILS PERCENT AUTO 89 % (41-73); Platelet Count 188 K/mm3 (150-400); RDW Coefficient Variation 14.8 % (11.7-14.2); RDW Standard Deviation 47.1 fL (35.1-46.3); Red Blood Cell Count 4.81 M/mm3 (4.30-5.90); White Blood Cell Count 11.49 K/mm3 (4.00-11.30)
[2020-09-25 05:45] LABS: Anion Gap 6 mmol/L (6-16); Blood Urea Nitrogen 42 mg/dL (8-24); Bun/Creatinine Ratio 43.2 (12.0-20.0); CO2, Blood 28 mmol/L (21-32); Calcium, Blood 7.7 mg/dL (8.5-10.1); Chloride, Blood 114 mmol/L (98-108); Creatinine, Blood 0.97 mg/dL (0.60-1.20); Glomerular Filtration Rate >60 (60-); Glucose, Blood 245 mg/dL (70-99); Magnesium, Blood 2.3 mg/dL (1.6-2.4); Phosphorus, Blood 2.3 mg/dL (2.5-4.9); Potassium, Blood 3.9 mmol/L (3.5-5.5); Sodium, Blood 148 mmol/L (136-145); Vancomycin, Random 8.7 ug/mL
--- NOTE | 2020-09-25 06:41 | NUR ---
SHIFT SUMMARY: SEE PREVIOUS NOTES. PT HAVING ISSUES BEING PROPERLY SEDATED DUE TO LOWERING BP, PHYSICAN IS AWARE. PT IS MOVING IN BED, ATTEMPTING TO REACH FOR ETT, PT FOLLOWS COMMANDS, AND NOT ABLE TO TOLERATE VENT WHEN PROPOFOL IS TURNED OFF. PT IS ALSO ON PRECEDEX AT 1MCG/KG/HR. PROPOFOL IS CURRENTLY AT 5MCG/KG/MIN. VENT SETTINGS AC16/470/5/40% , SPO2 MAINTAINING ABOVE 90% PT HAS HAD A MODERATE AMOUNT OF THICK YELLOW/BROWN SECRETIONS VIA ETT. PT HAS BEEN IN AFIB WITH HR BETWEEN 90-120. AMIO RUNNING AT 0.5MG/MIN. SBP IN THE 70-80 , PHYSICAN MADE AWARE 1 LITER OF NS GIVEN, AND MAINTAINCE FLUIDS ADDED. TF RUNNING AT GOAL 55ML/HR, TUBE FEED TUBING AND FEED CHANGED THIS SHIFT. VARGAS IS PATENT DRAINING TO GRAVITY, KEEGAN COLOR URINE NOTED. PERIPHERAL IV'S CHANGED THIS SHIFT.
[2020-09-25 13:20] LABS: International Normalized Ratio 1.8; Prothrombin Time Results 18.6 Sec (9.7-11.5)
--- NOTE | 2020-09-25 14:55 | NUR ---
AM NOTE... ASSUMED CARE OF PT AT 0700. PT IS INTUBATED AND SEDATED WITH AC:16/470/5/40%, KEEPING PT'S O2 SATS>90%. L/S COARSE IN THE RIGHT UPPER LOBE, DIM T/O THE REST OF THE LOBES AND VERY DIM ON THE LEFT SIDE. PT IS IN AFIB W/RVR WITH HR IN THE 100'S-160'S, BP IS SOFT, PT IS MILDLY SEDATED AT THIS TIME D/T SOFT SBP'S IN THE 80'S-90'S. PT IS MOVING ALL EXTREMITIES WITH INTENT. PT HAS NS RUNNING AT 100MLS/HR. AMIO GTT RUNNING AT 0.5MG/MIN PER ORDERS. TUBE FEED RUNNING PER ORDERS AT 50MLS/HR W/30MLS H2O FLUSHES Q4HR. BT PRESENT AND TYMPANIC, ABD HAS SEVERE DISTENTION AND IS SLIGHTLY FIRM TO PALP. PT HAS 1+ EDEMA TO HIS RIGHT FOOT. PT IS ALSO FEBRILE AT 100.4. MINIMAL ORAL SECRETIONS NOTED DURING ORAL CARE, TRACIAL SUCTION SHOWS MODERATE, THICK MOTTA/BROWN SECRETIONS. WILL CONTINUE TO MONITOR.
--- NOTE | 2020-09-25 15:00 | NUR ---
PT UPDATE... AT APROX 1245 PT'S DOBHOFF WAS D/C'D WNL PER DR. PARIS'S ORDERS AND AN OG TUBE WAS PLACED BY THIS RN. OG PLACEMENT WAS VERYFIED BY AUSCULTATION, A RETURN OF GASTRIC CONTENTS AND NO CONDENSATION NOTED IN THE TUBE WITH BREATHS. THE OG WAS THEN PLACED ON LOW INT SUCTION TO DECOMPRESS THE STOMACH. IT WAS NOTED AT 1430 THAT THERE WAS SOME DARK RED BLOOD IN THE OG TUBING, THERE WAS NOTHING IN THE SUCTION CANISTER AT THIS TIME. CHARGE NURSE WAS NOTIFED, THE SUCTION WAS STOPPED, AN ATTEMPT WAS MADE TO ASPIRATE THE OG TUBE, NOTHING CAME UP THE TUBE, THE OG WAS THEN FLUSHED WITH 30MLS OF WATER THEN ASPIRATED AGAIN, THIS TIME 30MLS OF RED WATER WAS REMOVED. NO AREAS OF BLEEDING WERE NOTED IN THE MOUTH. THE OG WAS THEN CONNECTED BACK TO THE TUBE FEED AT A NEW RATE OF 30MLS/HR PER ORDERS. WILL CONTINUE TO MONITOR.
--- NOTE | 2020-09-25 18:17 | NUR ---
SHIFT SUMMARY.... PT CONTINUES TO BE VENTED ON AC:16/470/5/40% WITH O2 SATS >90%. PT'S BP'S CONTINUE TO BE SOFT, PRECEDEX IS CURRENTLY ON AT 0.8.MCG. PROPOFOL IS RUNNING AT 8MCG. PT PULLS AWAY FROM PAINFUL STIMULI. PT HAS BEEN FEBRILE AND DIAPHORETIC ALL SHIFT. PT WAS MEDICATED WITH TYLENOL 650MGS WITH MINIMAL RESULTS. PT CONTINUES TO BE IN AFIB W/RVR WITH RATES 90'S-160'S, AMIO GTT RUNNING AT 0.5MG/MIN PER ORDERS. PT HAS NS RUNNING AT 100MLS/HR. HEPARIN GTT STARTED PER ORDERS AT 13UNITS/KG/HR. PT'S OG TUBE IS SET TO LOW INT SUCTION, AT 1745 THERE WAS 100MLS OF THICK DARK RED FLUID WITH SMALL BLOOD CLOTS NOTED, DR. PARIS IS AWARE. TUBE FEED IS TO STAY OFF UNTIL DR. PARIS COMES BACK IN THE MORNING TO ASSESS. PT HAD A LIGHT BROWN SMEAR THIS AFTERNOON, MEPILEX TO THE COCCYX WAS CHANGED, THERE IS NOTED TO BE A STAGE 2 PRESSURE UCLER SLIGHTLY BELOW THE COCCYX. TRACIAL SECRETIONS CONTINUE TO BE VERY THICK, TANISH/BROWN WITH A PINK TINGE. RT AND PROVIDER AWARE. VARGAS PATENT AND DRAINING KEEGAN URINE TO GRAVITY. PT'S FAMILY CALLED AND UPDATED ON PT'S CONDITION. WILL CONTINUE TO MONITOR UNTIL REPORT IS GIVEN TO ONCOMING RN.
--- NOTE | 2020-09-25 21:30 | NUR ---
UPDATE: PT's BP CONTINUES TO BE SOFT W/ MAPs OF 50-55. HR INC FROM 1teens TO 140-150s. RAINA ON UNIT & UPDATED ON PT CHANGES. DISCUSSED PLAN FOR POSSIBLE PRESSORS. PER RAINA, PT IS TO HAVE A 1L BOLUS OF LR & IF HYPOTENSIION DOES NOT IMPROVE, CALL FOR FUTHER ORDERS. BOLUS STARTED ORDERED, BP IS BEGINNING TO RESPOND. MAPs NOW 60-70. WILL CONTINUE TO MONITOR CLOSELY & REPORT APPROPRIATE.
--- NOTE | 2020-09-26 01:15 | NUR ---
UPDATE: BP IMPROVING, BUT CONTINUE TO BE SOFT. MAPs 60-70. OGT DRAINING DARK MAROON LIQUID & CONTINUOUS AIR BUBBLES SEEN IN OGT. UPON RECEIVING REPORT, SUCTION CANISTER HAD APPROX 200ml OF THIS SAME DARK MAROON OUTPUT, NOW 700ml. [facility] CALLED & UPDATED. PLAN FOR LR BOLUS & 1 ADDITIONAL LR BOLUS IF MAPs <65. ALSO PT's AM LABS WILL BE DRAWN NOW. IF CBC & CMP ARE MARKEDLY WORSE THAN PREVIOUS, [facility] IS TO BE CALLED FOR FURTHER PLAN OF CARE. LAB CALLED & BLOODWORK TO BE SENT SHORTLY.
[2020-09-26 01:59] LABS: BASOPHILS ABSOLUTE AUTO 0.01 K/mm3 (0.00-0.23); BASOPHILS PERCENT AUTO 0 % (0-2); EOSINOPHILS PERCENT AUTO 0 % (0-6); Hematocrit 34.4 % (37.0-53.0); IMMATURE GRAN ABSOLUTE AUTO 0.17 K/mm3 (0.00-0.10); IMMATURE GRAN PERCENT AUTO 2 % (0-1); LYMPHOCYTES ABSOLUTE AUTO 0.38 K/mm3 (0.84-5.20); LYMPHOCYTES PERCENT AUTO 4 % (21-46); MONOCYTES ABSOLUTE AUTO 0.59 K/mm3 (0.16-1.47); MONOCYTES PERCENT AUTO 6 % (4-13); Mean Corpuscular HGB 28.8 pg (26.0-34.0); Mean Corpuscular Volume 90 fL (80-100); NEUTROPHILS ABSOLUTE AUTO 8.85 K/mm3 (1.96-9.15); NEUTROPHILS PERCENT AUTO 89 % (41-73); Platelet Count 161 K/mm3 (150-400); RDW Coefficient Variation 14.8 % (11.7-14.2); RDW Standard Deviation 49.1 fL (35.1-46.3); Red Blood Cell Count 3.82 M/mm3 (4.30-5.90)
[2020-09-26 02:17] LABS: Alanine Aminotransfer (ALT/SGP 33 U/L (12-78); Albumin, Blood 1.8 g/dL (3.4-5.0); Albumin/Globulin Ratio 0.7 (0.8-1.8); Alk Phos 39 U/L (50-136); Anion Gap 4 mmol/L (6-16); Aspartate Aminotrans (AST/SGOT 14 U/L (12-37); Bilirubin, Total 0.8 mg/dL (0.1-1.0); Blood Urea Nitrogen 36 mg/dL (8-24); Bun/Creatinine Ratio 41.1 (12.0-20.0); CO2, Blood 27 mmol/L (21-32); Chloride, Blood 117 mmol/L (98-108); Creatinine, Blood 0.88 mg/dL (0.60-1.20); Globulin, Blood 2.5 g/dL (2.2-4.0); Glomerular Filtration Rate >60 (60-); Glucose, Blood 219 mg/dL (70-99); Magnesium, Blood 2.1 mg/dL (1.6-2.4); Phosphorus, Blood 2.4 mg/dL (2.5-4.9); Potassium, Blood 4.6 mmol/L (3.5-5.5); Sodium, Blood 148 mmol/L (136-145); Total Protein, Blood 4.3 g/dL (6.4-8.2)
[2020-09-26 04:44] LABS: PO2 Arterial 68.4 mmHg (80-100); pH Blood Arterial 7.51 (7.35-7.45)
--- NOTE | 2020-09-26 04:45 | NUR ---
WEEN: RT AT BEDSIDE, VENT TURNED TO SPONTANEOUS @ 7/5. PRECEDEX @ 0.8mcg/kg/min & PROPOFOL @ 8mcg/kg/hr. PT TOLERATED WELL, HR & BP REMAINED STABLE. PT REMAINED CALM W/ EVEN & UNLABORED RR. +GAG +SWALLOW. PT LIGHTLY PULLED AT RESTRAINTS & WAS ABLE TO SQUEEZE HAND ON THE R SIDE BUT NOT ON THE L, NO OTHER COMMANDS FOLLOWED. PUPILS REMAIN PINPOINT & FIXED. AFTER APPROX 30min PT PLACED BACK TO AC 16/470, 5/40%.
--- NOTE | 2020-09-26 06:41 | NUR ---
SHIFT SUMMARY: PT REMAINS INTUBATED & SEDATED. VENT: AC 16/470, 5/40%. GTTs: PRECEDEX 1mcg/kg/min, PROPOFOL 8mcg/kg/hr, HEPARIN 15u/kg/hr. NO CHANGES TO NEURO STATUS. WEEN WAS SUCCESSFUL, SEE PREVIOUS NOTATION. HEPARIN WAS FOUND TO BE SUBTHERAPEUTIC & PT WAS GIVEN A HEPARIN BOLUS & GTT WAS INC TO 15u PER PHARMACY. BLEEDING & AIR CONTINUE THROUGH OGT, DEBORAHMAN AWARE. NO BM SINCE 09/21, W/ ONLY SM SMEAR 09/25. GIVEN MILK OF MAG PER PROTOCOL. VARGAS OUTPUT BECOMING PROGRESSIVELY PINK-TINGED, IS SPUTUM. PT RECEIVED #2 1LITER BOLUSES OF LR FOR MAPs <65. WILL CONTINUE TO MONITOR UNTIL REPORT OFF TO ONCOMING RN.
[2020-09-26 06:57] LABS: International Normalized Ratio 1.33
--- NOTE | 2020-09-26 08:03 | NUR ---
CALL TO DR. PARIS REGARDING PT HYPOTENSION PER PRIMARY RN PLANS FOR NEOSYNEPHRINE GTT AND PICC LINE PLACEMENT.
--- NOTE | 2020-09-26 08:25 | NUR ---
ASSESSMENT- PT SEDATED WTIH PROPOFOL AT 8 MCG/KG/MIN INCREASED TO 10 MCG/KG/MIN, PRECEDEX GTT AT 1.0-TITRATED DOWN TO 0.6 MCG/KG/HR. NO RESPONSE TO VERBAL STIMULUS. DOES MOVE LEGS SPONTANEOUSLY. ORALLY INTUBATED, TUBE SECURE, TOLERATING VENT, LUNGS CLEAR, SECRETIONS MOTTA FROM ETT. AFIB RATE VARIES 110'130'S. HYPOTENSIVE SBP 70'S. OGT WITH DARK BLOODY DRAINAGE 250 CC IN CANISTER. BOWEL SOUNDS PRESENT, ABDOMEN LARGE, SOFT, OGT TO LIS. UO GOOD VIA VARGAS, CLEAR YELLOW. REPOSITIONED, BILATERAL WRIST RESTRAINTS FOR SAFETY, EXTUBATION RISK. PIV X 3 INTACT, NS AT 100 CC/HR, VANCOMYCIN IVPB STARTED. PTT ELEVATED, REDRAWN, HEPARIN ON HOLD. UPDATE TO DR. PARIS-BLOOD PRESSURE IMPROVED WITH NS BOLUS 300 CC, NEOSYNEPHRINE ON HOLD.
--- NOTE | 2020-09-26 08:47 | NUR ---
PTT NEW RESULT 58, ORDERS TO RESTART GTT AT 15 UNITS/KG/HR. PLANS FOR PICC PLACEMENT
--- NOTE | 2020-09-26 09:19 | NUR ---
PULLING AT RESTRAINTS, PROPOFOL INCREASED FOR PICC LINE PLACEMENT. HYPOTENSIVE, NEOSYNEPHRINE STARTED
--- NOTE | 2020-09-26 10:27 | NUR ---
REPOSITIONED TO SIDE TO RELIEVE PRESSURE ON COCCYX, PURPLE AREA PRESENT, ALLEVYN APPLIED, NO DRAINAGE, NO BLANCHING
--- NOTE | 2020-09-26 12:33 | NUR ---
REPOSITIONED. IV PROTONIX GIVEN, OGT CONTINUES WITH SOME DARK RED DRAINAGE. RIGHT ARM PICC LINE NEW, RIGHT PIV D/C. NS TO TKO. PRECEDEX D/C, PROPOFOL FOR SEDATION.
--- NOTE | 2020-09-26 14:24 | NUR ---
HARPER INCREASED TO 60 MCG/MIN FOR BP SUPPORT, HEARTRATE 90-110'S. OGT WITH 600 CC DRAINAGE. PTT AND H/H DONE.
[2020-09-26 14:56] LABS: Hematocrit 33.8 % (37.0-53.0); Hemoglobin 10.4 g/dL (13.5-17.5)
--- NOTE | 2020-09-26 15:36 | NUR ---
TACHYCARDIC, HEARTRATE 120'140'S. SBP 90'S. UPDATE TO DR. PARIS. ORDERS TO RESTART AMIODARONE GTT AT 1 MG/MIN CONTINUOUS, NO STOP TIME. REPOSITIONED, SEDATED, CALM.
--- NOTE | 2020-09-26 16:25 | NUR ---
PTT 38 TO RECHECK AT 1999, KEEP AT SAME RATE. AMIODARONE STARTED PER ORDERS. AFIB WITH VARIABLE RATE 110-140'S
--- NOTE | 2020-09-26 16:53 | NUR ---
Received a return call from Sumeet pt's dadughter. She states she and her 5 siblings will be coming into [place] on FridaySeptember 29 and will be making a decision on next steps. She states it he hasn't improved, or if he is worse by then, they will discuss changing his status to comfort care. Will follow up on Friday, unless things change unexpectomely.
--- NOTE | 2020-09-26 18:30 | NUR ---
ATTEMPT TO DECREASE NEOSYNEPHRINE BUT LOW BP-NOW AT 60 MCG/MIN. AMIODARONE GTT AT 1 MG/HR PER ORDERS, HEARTRATE 100-110'S. SEDATED WITH PROPOFOL AT 30 MCG/KG/MIN. PERRL. NS TKO. HEPARIN GTT AT 15 U/KG/HR. REPEAT H/H TODAY 10.4. SKIN MOIST. FEET REMAIN COOL AND PURPLISH-WARMER THAN EARLIER. ENHANCED PRECAUTIONS IN EFFECT. UO GOOD.
--- NOTE | 2020-09-26 19:07 | NUR ---
24 CM AT [facility]
--- NOTE | 2020-09-26 19:10 | NUR ---
ASSUMPTION OF CARE RECEIVED REPORT FROM JAN RN, ASSUMED CARE OF PATIENT. PATIENT INTUBATED, SEDATED ON 30 OF PROPOFOL. AMIO AND HARPER DRIPS INFUSING ORDERED FOR HEART RATE AND BLOOD PRESSURE CONTROL. NO S/S OF DISTRESS. VITALS CHARTED. WILL REVIEW ORDERS AND TREAT PRESCRIBED.
--- NOTE | 2020-09-26 20:42 | NUR ---
Heparin Adjusted heparin per pharmacy order to 14.5 units.
--- NOTE | 2020-09-27 | NUR ---
REASSESSMENT NO ACUTE CHANGES FROM PREVIOUS ASSESSMENT. FIO2 AT 25% WITH SATS ABOVE 95%. OG TO LIS WITH MAROON DRAINAGE FROM TUBE. HEART RATE REMAINS AFIB WITH RATE 100-120 ON AMIO ORDERED. HARPER INFUSING TO MAINTAIN MAP OF 65. HEPARIN INFUSING ORDERED. VARGAS REMAINS PATENT AND DRAINING CLEAR, YELLOW URINE. WILL CONTINUE TO MONITOR.
[2020-09-27 02:57] LABS: BASOPHILS ABSOLUTE AUTO 0.08 K/mm3 (0.00-0.23); BASOPHILS PERCENT AUTO 0 % (0-2); EOSINOPHILS ABSOLUTE AUTO 0.02 K/mm3 (0.00-0.68); EOSINOPHILS PERCENT AUTO 0 % (0-6); Hematocrit 29.3 % (37.0-53.0); Hemoglobin 9.1 g/dL (13.5-17.5); IMMATURE GRAN ABSOLUTE AUTO 1.38 K/mm3 (0.00-0.10); IMMATURE GRAN PERCENT AUTO 6 % (0-1); LYMPHOCYTES ABSOLUTE AUTO 1.22 K/mm3 (0.84-5.20); LYMPHOCYTES PERCENT AUTO 5 % (21-46); MONOCYTES ABSOLUTE AUTO 1.69 K/mm3 (0.16-1.47); MONOCYTES PERCENT AUTO 7 % (4-13); Mean Corpuscular HGB 28.3 pg (26.0-34.0); Mean Corpuscular HGB Conc 31.1 g/dL (31.5-36.5); Mean Corpuscular Volume 91 fL (80-100); Mean Platelet Volume 11.5 fL (9.1-12.4); NEUTROPHILS PERCENT AUTO 81 % (41-73); NRBC ABSOLUTE 0.06 K/mm3 (0.00-0.02); NRBC Auto 0.3 /100 WBC (0.0-0.2); Platelet Count 276 K/mm3 (150-400); RDW Coefficient Variation 15.2 % (11.7-14.2); RDW Standard Deviation 50.5 fL (35.1-46.3); Red Blood Cell Count 3.21 M/mm3 (4.30-5.90); White Blood Cell Count 22.89 K/mm3 (4.00-11.30)
[2020-09-27 03:15] LABS: BAND PERCENT MAN 1 % (0-8); BASOPHILS PERCENT MAN 0 % (0-2); EOSINOPHILS PERCENT MAN 0 % (0-6); LYMPHOCYTES ABSOLUTE MAN 1.14 K/mm3 (0.84-5.20); LYMPHOCYTES PERCENT MAN 5 % (21-46); METAMYELOCYTE ABSOLUTE MAN 0.91 K/mm3 (0.00-0.00); METAMYELOCYTE PERCENT MAN 4 % (0-0); MONOCYTES ABSOLUTE MAN 1.14 K/mm3 (0.16-1.47); MONOCYTES PERCENT MAN 5 % (4-13); MYELOCYTE ABSOLUTE MAN 0.45 K/mm3 (0.00-0.00); MYELOCYTE PERCENT MAN 2 % (0-0); NEUTROPHILS ABSOLUTE MAN 19.22 K/mm3 (1.96-9.15); SEG NEUTROPHILS PERCENT MAN 83 % (41-73); TOTAL CELLS COUNTED 100
[2020-09-27 03:16] LABS: Alanine Aminotransfer (ALT/SGP 24 U/L (12-78); Albumin, Blood 1.8 g/dL (3.4-5.0); Albumin/Globulin Ratio 0.7 (0.8-1.8); Alk Phos 36 U/L (50-136); Anion Gap 4 mmol/L (6-16); Aspartate Aminotrans (AST/SGOT 12 U/L (12-37); Bilirubin, Total 0.6 mg/dL (0.1-1.0); Blood Urea Nitrogen 39 mg/dL (8-24); Bun/Creatinine Ratio 44.5 (12.0-20.0); CO2, Blood 26 mmol/L (21-32); Calcium, Blood 7.2 mg/dL (8.5-10.1); Chloride, Blood 118 mmol/L (98-108); Creatinine, Blood 0.88 mg/dL (0.60-1.20); Globulin, Blood 2.5 g/dL (2.2-4.0); Glomerular Filtration Rate >60 (60-); Glucose, Blood 197 mg/dL (70-99); Magnesium, Blood 2.3 mg/dL (1.6-2.4); Phosphorus, Blood 1.9 mg/dL (2.5-4.9); Potassium, Blood 4.7 mmol/L (3.5-5.5); Sodium, Blood 148 mmol/L (136-145); Total Protein, Blood 4.3 g/dL (6.4-8.2)
--- NOTE | 2020-09-27 04:00 | NUR ---
REASSESSMENT NO ACUTE CHANGES FROM PREVIOUS ASSESSMENT. FIO2 REMAINS AT 25%. AMIO AND HARPER INFUSING ORDERED. OG WITH RED DRAINAGE CONTINUES. LABS COLLECTED AND RESULTED. WILL CONTINUE TO MONITOR.
[2020-09-27 05:08] LABS: PCO2 Arterial 30.2 mmHg (35-45); PO2 Arterial 75.5 mmHg (80-100)
--- NOTE | 2020-09-27 05:09 | NUR ---
BREATHING TRIAL PROPOFOL DECREASED TO 15MCG/KG/HR. PATIENT FOLLOWING COMMANDS. VENT SETTINGS SPONTANEOUS PEEP OF 5, FIO2 25% SATS 98%. PATIENT TOLERATING WELL.
--- NOTE | 2020-09-27 05:11 | NUR ---
HEPARIN HEPARIN INCREASED TO 16UNIT/KG ORDERED BY PHARMACY.
--- NOTE | 2020-09-27 06:18 | NUR ---
SHIFT SUMMARY PATIENT ON SPONT WITH PEEP OF 5 AND FIO2 25%. SATS 97%. PATIENT WITH NO S/S OF DISTRESS, AROUSABLE, FOLLOWS COMMANDS. PROPOFOL AT 15MCG/KG/MIN FOR SEDATION/COMFORT. OG TO LIS WITH DARK/RED DRAINAGE. HEART RHYTHM AFIB RATE 100-120'S ON AMIODARONE OF 1MG/MIN, HARPER AT 100MCG/MIN WITH MAP ABOVE 65. HEPARIN INFUSING AT 16UNIT/KG/HR. SODIUM PHOS INFUSING TO COVER PHOSPHOROUS LAB RESULT THIS AM. VARGAS CATHETER PATENT AND DRAINING CLEAR, YELLOW URINE. REPOSITIONED CHARTED. RESTRAINTS REMAIN IN PLACE. WILL CONTINUE TO MONITOR AND REPORT TO ONCOMING RN.
--- NOTE | 2020-09-27 08:10 | NUR ---
INITIAL ASSESSMENT PATIENT INTUBATED AND ON SEDATION. PATIENT RESPONDING TO VERBAL STIMULI. PATIENT OPENING EYES, SQUEEZING NURSE'S HANDS AND WIGGLING FEET TO NURSE COMMAND. SCLERA EDEMATOUS AND JAUNDICED. PATIENT HAS TEMP OF 99.5 DEGREES FAHRENHEIT. NO SIGNS OF PAIN NOTED AT THIS TIME. PATIENT ON SPONTANEOUS PS 7/5, 25% FIO2. LUNGS CLEAR IN UPPER LOBES. CRACKLES NOTED IN LOWER LOBES. SMALL AMOUNT OF THICK, MOTTA SPUTUM BEING SUCTIONED FROM ETT. RR IN HIGH 20S. PATIENT IN A. FIB. CLICK NOTED UPON AUSCULTATION. HR 1-TEENS TO 130S. SBP 90S TO LOW 100S. ABDOMEN MODERATELY DISTENDED, SOFT, WITH HYPOACTIVE BS NOTED. OG TO LIS, DRAINING DARK RED FLUID. LAST BM ON 09/25. VARGAS DRAINING YELLOW COLORED URINE. FEET COOL AND PURPLE IN COLOR. ULCER NOTED TO COCCYX- MEPILEX IN PLACE. AMIODARONE AT 1 MG/ MINUTE, PROPOFOL AT 15 MCG/ KG/ MINUTE, HEPARIN AT 16 UNITS/ KG/ HOUR, HARPER-SYNEPHRINE AT 90 MCG/ MINUTE. BED LOW, CALL LIGHT IN REACH. WILL CONTINUE TO MONITOR PATIENT FREFQUENTLY THROUGHOUT SHIFT.
--- NOTE | 2020-09-27 11:00 | NUR ---
DR. PARIS UPDATED ON PATIETN STATUS. INFORMED THAT WBCS INCREASED FROM 10 TO 22.89. INFORMED THAT PHOS 1.9 THIS AM AND THAT 20 MM SODIUM PHOS GIVEN REPLACEMENT. INFORMED THAT HEMOGLOBIN 9.1 AND HAS BEEN STEADILY DROPPING DAY TO DAY. INFORMED THAT HR HAS INCREASED UP TO 140S. INFORMED THAT HARPER AND AMIO REMAIN INFUSING. INFORMED THAT PATIENT HAS BEEN ON SPONTANEOUS PRESSURE SUPPORT SINCE 0500 THIS AM. INFORMED THAT MUSSEL FARMER REPORT 800 MLS OF MAROON DRAINAGE FROM OG AND THAT PATIENT CONTINUES TO HAVE DRAINAGE THIS SHIFT. NO ORDERS RECEIVED AT THIS TIME.
--- NOTE | 2020-09-27 12:10 | NUR ---
PATIENT HAS TEMP OF 99.1 DEGREES FAHRENHEIT. NO SIGNS OF DISCOMFORT NOTED. HR LOW 100S TO 120S. SBP 70S TO 1-TEENS. BP LABILE. HARPER-SYNEPHRINE AT 100 MCG/ MINUTE. PICC DRESSING CHANGED. BLOOD SUGAR 193; COVERAGE GIVEN. NO OTHER ACUTE CHANGES TO NOTE ON AT THIS TIME. WILL CONTINUE TO MONITOR.
--- NOTE | 2020-09-27 16:39 | NUR ---
PATIENT HAS TEMP OF 99.1 DEGREES FAHRENHEIT. PATIENT REMAINS ON SAME VENT SETTINGS. HR 120S TO 140S. SBP 70S TO 80S. DR. PARIS IS AWARE OF VITALS. HARPER-SYNEPHRINE AT 110 MCG/ MINUTE. VASOPRESSIN AT 0.04 UNITS/ MINUTE. HEPARIN AT 18 UNITS/ KG/ HOUR. CLINIMIX AT 80 MLS/ HOUR. PROPOFOL AT 25 MCG/ KG/ MINUTE. NO OTHER ACUTE CHANGES TO NOTE ON AT THIS TIME. WILL CONTINUE TO MONITOR.
--- NOTE | 2020-09-27 16:59 | NUR ---
DR. PARIS CALLED AND UPDATED ON PHOS LEVEL OF 2.2. ORDER RECEIVED.
--- NOTE | 2020-09-27 18:40 | NUR ---
SHIFT SUMMARY PATIENT REMAINED INTUBATED AND ON SEDATION. PATIENT DID FOLLOW SOME SIMPLE COMMANDS WHEN ON BUSINESS DEVELOPMENT COORDINATOR SEDATION. TMAX OF 99.5 DEGREES FAHRENHEIT. PATIENT HAD NO SIGNS OF PAIN THIS SHIFT. PATIENT ON PS 7/5, 25% MOST OF THE DAY. PATIENT PLACED BACK ON AC 16, TV 470, PEEP 5 AND 25% FIO2 AFTER APPEARING TO BE TIRING OUT AND RR INCREASING. PATIENT REMAINED IN A.FIB, HR 90S TO 150S. SBP LABILE RANGING BETWEEN 70S AND 120S. NO BM THIS SHIFT. PATIENT STARTED ON PPN THIS SHIFT. OG TO LIS DRAINED 850 MLS OF MAROON DRAINAGE. VARGAS DRAINED ADEQUATE AMOUNT OF YELLOW COLORED URINE. NO CHANGE IN SKIN. PATIENT REPOSITIONED THROUGHOUT SHIFT. AMIODARONE INFUSING AT 1 MG/ MINUTE, PROPOFOL AT 25 MCG/ KG/ MINUTE, HEPARIN AT 18 UNITS/ KG/ HOUR, HARPER-SYNEPHRINE 90 TO 110 MCG/ MINUTE; CURRENTLY AT 90. VASOPRESSIN AT 0.04 UNITS/ MINUTE, CLINIMIX AT 80 MLS/ HOUR. PATIENT RECEIVED MERREM THIS SHIFT. PATIENT RECEIVED 30 MM SODIUM PHOS FOR ADDITIONAL REPLACEMENT TO AM DOSE OF 20 MM. BLOOD SUGARS 193 TO 218. PATIENT APPEARS COMFORTABLE AT THIS TIME. [facility] NUR[facility] SHORTLY.
--- NOTE | 2020-09-27 20:38 | NUR ---
ASSUMPTION OF CARE RECEIVED REPORT FROM ZEESHAN WEST AT 1900. ASSUMED CARE OF PATIENT. PATIENT AWAKE, VENT ALARMING, RESP 30-40S, PATIENT MOVING LEGS AND COUGHING CONTINUOUSLY. UNABLE TO OBTAIN A PULSE OX READING FROM FINGERS. PROBE CHANGED SEVERAL TIMES, REPOSITIONED TO EAR LOBE AND BEGAN GETTING A POOR PLETH WITH SATS IN THE 80S. BEGAN INCREASING PROPOFOL FROM 25MCG TO 35 MCG, GAVE FENTANYL CHARTED. FIO2 INCREASED TO 100% AND SUCTION PROVIDED WITH NO SECRETIONS PRESENT. PATIENT'S AGITATION CONTINUED, PROPOFOL INCREASED TO 45MCG, THEN TO 50MCG WITHIN 15 MINUTES. ATIVAN GIVEN CHARTED. JORDYN RT TO ROOM TO ADJUST VENT SETTINGS, FIO2 SLOWLY INCREASED TO 50% UNTIL SATS MAINTAINED ABOVE 90% WITH AN ACCURATE PLETH UTLIZING EAR PROBE. PROPOFOL CONTINUED TO TITRATE UP PER PATIENT'S CONTINUED AGITATION, COUGHING AGAINST VENT, AND RESPIRATIONS REMAINING HIGH. PROPOFOL CURRENTLY AT 60MCG/KG/MIN, FIO2 50%, HARPER 100MCG, VASO 0.04, AMIO AT 1MG/MIN WITH HEART RATE AFIB RATE 120-140'S, AND HEPARIN AT 18UNIT/KG/HR. OG TO LIS WITH COPIOUS DARK RED DRAINAGE. PATIENT CURRENTLY WITH A SAS OF 3. WILL CONTINUE TO MONITOR.
--- NOTE | 2020-09-27 22:29 | NUR ---
TEMPERATURE VARGAS TEMPERATURE READING 100.5, ICE BAGS TO SIDES AND FAN PROVIDED.
--- NOTE | 2020-09-27 23:04 | NUR ---
HEPARIN INCREASED HEPARIN TO 19UNIT/KG PER NEW ORDERS
--- NOTE | 2020-09-27 23:12 | NUR ---
TEMPERATURE TEMPERATURE 101.5, TYLENOL GIVEN VIA OG. OG CLAMPED FROM LIS. WILL MONITOR PATIENT'S TOLERANCE.
--- NOTE | 2020-09-28 | NUR ---
REASSESSMENT NO ACUTE CHANGES FROM PREVIOUS ASSESSMENT. TITRATIONS CONTINUE TO INFUSE. MAP ABOVE 65, 02 SATS ABOVE 95%. TEMP IS 101.3 AFTER TYLENOL, ICE PACKS REMAIN TO SIDES. OG RESTARTED TO LIS WITH DARK, RED DRAINAGE. WILL CONTINUE TO MONITOR.
--- NOTE | 2020-09-28 04:02 | NUR ---
REASSESSMENT NO ACUTE CHANGES FROM PREVIOUS ASSESSMENT. MAP ABOVE 65 ON HARPER OF 150MCG/MIN. SATS ABOVE 90% ON 50% FIO2. OG TO LIS WITH DARK RED DRAINAGE. WILL CONTINUE TO MONITOR.
[2020-09-28 05:12] LABS: Hematocrit 20.7 % (37.0-53.0); Hemoglobin 6.5 g/dL (13.5-17.5); Mean Corpuscular HGB 28.6 pg (26.0-34.0); Mean Corpuscular HGB Conc 31.4 g/dL (31.5-36.5); Mean Corpuscular Volume 91 fL (80-100); Mean Platelet Volume 11.6 fL (9.1-12.4); NRBC ABSOLUTE 0.64 K/mm3 (0.00-0.02); NRBC Auto 2.1 /100 WBC (0.0-0.2); Platelet Count 146 K/mm3 (150-400); RDW Coefficient Variation 15.4 % (11.7-14.2); RDW Standard Deviation 50.6 fL (35.1-46.3); Red Blood Cell Count 2.27 M/mm3 (4.30-5.90); White Blood Cell Count 30.67 K/mm3 (4.00-11.30)
[2020-09-28 05:30] LABS: PO2 Arterial 118 mmHg (80-100); pH Blood Arterial 7.44 (7.35-7.45)
[2020-09-28 05:31] LABS: BAND PERCENT MAN 16 % (0-8); BASOPHILS PERCENT MAN 0 % (0-2); EOSINOPHILS PERCENT MAN 0 % (0-6); LYMPHOCYTES PERCENT MAN 1 % (21-46); MONOCYTES ABSOLUTE MAN 0.92 K/mm3 (0.16-1.47); MONOCYTES PERCENT MAN 3 % (4-13); MYELOCYTE ABSOLUTE MAN 0.92 K/mm3 (0.00-0.00); MYELOCYTE PERCENT MAN 3 % (0-0); NEUTROPHILS ABSOLUTE MAN 28.52 K/mm3 (1.96-9.15); SEG NEUTROPHILS PERCENT MAN 77 % (41-73); TOTAL CELLS COUNTED 100
[2020-09-28 05:32] LABS: Anion Gap 8 mmol/L (6-16); Blood Urea Nitrogen 36 mg/dL (8-24); CO2, Blood 20 mmol/L (21-32); Calcium, Blood 6.8 mg/dL (8.5-10.1); Chloride, Blood 114 mmol/L (98-108); Glomerular Filtration Rate >60 (60-); Glucose, Blood 355 mg/dL (70-99); Magnesium, Blood 2.1 mg/dL (1.6-2.4); Phosphorus, Blood 2.9 mg/dL (2.5-4.9); Potassium, Blood 4.7 mmol/L (3.5-5.5); Sodium, Blood 142 mmol/L (136-145)
--- NOTE | 2020-09-28 05:42 | NUR ---
H/H REPORTED H/H TO DR. PARIS VIA T/P. RECEIVED ORDERS TO TRANSFUSE. PLACED PHONE CALL TO PATIENT'S MOTHER LUCAS, RECEIVED PERMISSION FROM LUCAS TO TRANSFUSE PRBC TO PATIENT. WILL TREAT PRESCRIBED.
--- NOTE | 2020-09-28 06:09 | NUR ---
SHIFT SUMMARY PATIENT REMAINED INTUBATED WITH CURRENT VENT SETTING AC 16, VT470, PEEP 5, FIO2 50%. 02 SATS 96%. PATIENT RESPONDS TO PHYSICAL STIMULI, PROPOFOL AT 20MCG/KG. BLOOD PRESSURES TRENDED AND TITRATED HARPER FOR MAP ABOVE 65. HARPER INFUSING AT 150MCG AND VASO AT 0.04. REPORTED PATIENTS H/H TO DR. PARIS AND RECEIVED ORDERS TO TRANSFUSE PRBC. OG WITH DARK RED DRAINAGE. VARGAS WITH CLEAR YELLOW URINE. WILL CONTINUE TO MONITOR AND REPORT TO ONCOMING RN.
--- NOTE | 2020-09-28 08:00 | NUR ---
SHIFT ASSESSMENT PATIENT INTUBATED AND SEDATED. PATIENT DOES RESPOND TO NOXIOUS STIMULI WITH GRIMACING AND LOCALIZING OF EXTREMITIES. SCLERA JAUNDICED AND EDEMATOUS. PATIENT HAS TEMP OF 99.1 DEGREES FAHRENHEIT. NO SIGNS OF PAIN NOTED AT THIS TIME. CRACKLES NOTED IN LOWER LOBES. PATIENT SATTING 90% AND GREATER ON AC 16, TV 470, PEEP 5, AND 50% FIO2. PATIENT IN A.FIB, HR 80S TO LOW 100S. SBP 90S TO LOW 100S. CLICK NOTED ON AUSCULTATION. LAST BM ON 09/25. OG TO LIS- DRAINING MAROON COLORED BLOOD. HYPOACTIVE BS NOTED. MODERATE ABD DISTENTION NOTED. VARGAS DRAINING YELLOW COLORED URINE. BLE SCALEY, GROIN REDDENED, ULCER TO COCCYX. PATIENT BEING REPOSITIONED Q2H AND PRN. AMIODARONE AT 1 MG/ MINUTE, PROPOFOL AT 20 MCG/ KG/ MINUTE, HEPARIN AT 19 UNITS/ KG/ HOUR, HARPER-SYNEPHRINE AT 150 MCG/ MINUTE, VASOPRESSIN AT 0.04 UNITS/ MINUTE, CLINIMIX AT 80 MLS/ HOUR. PATIENT RECEIVING 1 UNIT PRBC THIS AM FOR HEMOGLOBIN OF 6.5 THIS AM. PATIENT APPEARS WITHOUT DISTRESS AT THIS TIME. BED LOW, CALL LIGHT IN REACH. WILL CONTINUE TO MONITOR.
--- NOTE | 2020-09-28 10:00 | NUR ---
DR. PARIS UPDATED ON PATIENT STATUS. INFORMED THAT WBCS INCREASING. INFORMED THAT CALCIUM 6.8 THIS AM. INFORMED THAT HEMOGLOBIN 6.5 AND THAT PATIENT CURRENTLY RECEIVING 1 UNIT PRBCS. INFORMED THAT PATIENT HAD 600 MLS OF BLOOD FROM OG ON COLD PRESS LOADER PER NIGHT RN. INFORMED THAT PATIENT HAD TMAX OF 101.5 DEGREES FAHRENHEIT ON COLD PRESS LOADER. INFORMED THAT PATIENT ON FIO2 OF 50%. INFORMED THAT PATIENT +5,000 FLUID BALANCE OVERALL. INFORMED THAT HARPER-SYNEPHRINE AT 150 MCG/ MINUTE.
--- NOTE | 2020-09-28 12:40 | NUR ---
PATIENT HAS TEMP OF 99.1 DEGREES FAHRENHEIT. PATIENT SATTING 90% AND GREATER ON SAME VENT SETTINGS. HR 70S TO 90S. SBP LOW 100S TO 130S. SANDOSTATIN STARTED AND INFUSING AT 50 MLS/ HOUR. HARPER-SYNEPHRINE AT 120 MCG/ MINUTE. AMIODARONE INFUSING AT 0.5 MG/ MINUTE. BLOOD SUGAR OF 324; COVERAGE GIVEN. NO OTHER ACUTE CHANGES TO NOTE ON AT THIS TIME. WILL CONTINUE TO MONITOR.
[2020-09-28 13:00] LABS: Hematocrit 22.1 % (37.0-53.0); Hemoglobin 7.1 g/dL (13.5-17.5)
--- NOTE | 2020-09-28 16:00 | NUR ---
PATIENT HAS TEMP OF 99.3 DEGREES FAHRENHEIT. HR 80S TO LOW 100S. SBP 80S TO LOW 100S. FIO2 AT 40%. NO OTHER ACUTE CHANGES TO NOTE ON AT THIS TIME. WILL CONTINUE TO MONITOR.
--- NOTE | 2020-09-28 17:25 | NUR ---
SHIFT SUMMARY PATIENT REMAINED INTUBATED AND SEDATED. PATIENT CONTINUED TO RESPOND TO NOXIOUS STIMULI. PATIENT HAD TMAX OF 99.5 DEGREES FAHRENHEIT. PATIENT APPEARED WITHOUT DISCOMFORT OR DISTRESS T/O SHIFT. PATIENT DECREASED FROM 50 TO 40% ON VENTILATOR THIS SHIFT. SMALL TO MODERATE AMOUNT OF THICK, BROWN/ MOTTA SPUTUM REMAINED BEING SUCTIONED FROM ETT. PATIENT REMAINED IN A. FIB WITH HR RANGING FROM 70S TO LOW 100S. SBP 80S TO 130S AND COULD BE LABILE AT TIMES. HARPER-SYNEPHRINE ABLE TO BE DECREASED THIS SHIFT FROM 150 TO 80 MCG/ MINUTE. VASOPRESSIN REMAINED AT 0.04 UNITS/ MINUTE. AMIODARONE DECREASED FROM 1 TO 0.5 MG/ MINUTE. OG REMAINED TO LIS AND DRAINING MAROON BLOOD. NO BM THIS SHIFT. CLINIMIX DC'D THIS SHIFT AND CPN STARTED AT 70 MLS/ HOUR. VARGAS DRAINED ADEQUATE AMOUNT OF YELLOW URINE. NYSTATIN ORDERED FOR REDDENED GROIN/ JEFFRY AREA. PROPOFOL AT 20 MCG/ KG/ MINUTE. HEPARIN ON SB UNTIL H&H STABLE. SANDOSTATIN AT 50 MLS/ HOUR. PROTONIX AT 10 MLS/ HOUR. PATIENT RECEIVED MERREM THIS SHIFT. PATIENT RECEIVED [address] GILBERT SAW PATIENT THIS SHIFT. NEW SPUTUM SENT TO LAB. BLOOD SUGARS RANGED FROM 193 TO 324. BED LOW, CALL LIGHT IN REACH. WILL BE GIVING REPORT TO ONCOMING V GROOVE CUTTER RN SHORTLY.
--- NOTE | 2020-09-28 17:55 | NUR ---
Met with ICU staff this am, discussed pt's current condition. No changes to his plan of care at this time. his children will be arriving tomorrow re reevaluate. No immediated needs identfied.
[2020-09-28 19:39] LABS: Hematocrit 23.7 % (37.0-53.0); Hemoglobin 7.8 g/dL (13.5-17.5)
--- NOTE | 2020-09-28 20:00 | NUR ---
ASSUMED CARE OF PT AT 1915. REPORT RECEIVED. PT PRESENTS IN BED. VENTED. SEE FLOWSHEET FOR MEDICATION DRIPS. PT REMAINS IN AFIB. RESPIRATORY HAS JUST DECREASED FIO2 TO 35 PERCENT. PT MAINTAINS SATURATIONS > 90 PERCENT. PT IN NO APPARENT DISTRESS. WILL REVIEW CHART AND PLAN OF CARE FOR THIS PT.
--- NOTE | 2020-09-29 01:44 | NUR ---
FULL BEDBATH DONE FOR PT. PT DOES HAVE SOME DESATURATIONS WITH TURNS. FIO2 PLACED FROM 35 PERCENT TO 40 PERCENT AFTERWARDS. PT CURRENTLY MAINTAINS > 90 PERCENT SATURATIONS. HAVE SUCTIONED PT WITH RETURN OF BLOODY SECRETIONS. PT HAS INCONTINENT STOOL THAT HAS NO S/S MELONA. OGT TO LIWS WITH RETURN OF DARK GREEN/MAROON COLORED SECRETIONS. COFFEE GROUND APPEARANCE. WILL CONTINUE TO MONITOR.
[2020-09-29 04:06] LABS: Hematocrit 22.5 % (37.0-53.0); Hemoglobin 7.4 g/dL (13.5-17.5); Mean Corpuscular HGB 29.1 pg (26.0-34.0); Mean Corpuscular HGB Conc 32.9 g/dL (31.5-36.5); Mean Corpuscular Volume 89 fL (80-100); Mean Platelet Volume 12.2 fL (9.1-12.4); NRBC ABSOLUTE 0.63 K/mm3 (0.00-0.02); NRBC Auto 2.6 /100 WBC (0.0-0.2); Platelet Count 112 K/mm3 (150-400); RDW Coefficient Variation 15.4 % (11.7-14.2); RDW Standard Deviation 49.3 fL (35.1-46.3); Red Blood Cell Count 2.54 M/mm3 (4.30-5.90); White Blood Cell Count 24.33 K/mm3 (4.00-11.30)
[2020-09-29 04:32] LABS: Alanine Aminotransfer (ALT/SGP 19 U/L (12-78); Albumin, Blood 1.6 g/dL (3.4-5.0); Albumin/Globulin Ratio 0.7 (0.8-1.8); Alk Phos 46 U/L (50-136); Anion Gap 5 mmol/L (6-16); Aspartate Aminotrans (AST/SGOT 26 U/L (12-37); Bilirubin, Total 0.8 mg/dL (0.1-1.0); Blood Urea Nitrogen 29 mg/dL (8-24); CO2, Blood 22 mmol/L (21-32); Calcium, Blood 6.9 mg/dL (8.5-10.1); Chloride, Blood 115 mmol/L (98-108); Creatinine, Blood 0.69 mg/dL (0.60-1.20); Globulin, Blood 2.3 g/dL (2.2-4.0); Glomerular Filtration Rate >60 (60-); Glucose, Blood 291 mg/dL (70-99); Magnesium, Blood 2.2 mg/dL (1.6-2.4); Phosphorus, Blood 1.9 mg/dL (2.5-4.9); Potassium, Blood 4.7 mmol/L (3.5-5.5); Sodium, Blood 142 mmol/L (136-145); Total Protein, Blood 3.9 g/dL (6.4-8.2)
[2020-09-29 05:00] LABS: BAND PERCENT MAN 16 % (0-8); BASOPHILS PERCENT MAN 0 % (0-2); EOSINOPHILS ABSOLUTE MAN 0.24 K/mm3 (0.00-0.68); EOSINOPHILS PERCENT MAN 1 % (0-6); LYMPHOCYTES ABSOLUTE MAN 0.24 K/mm3 (0.84-5.20); LYMPHOCYTES PERCENT MAN 1 % (21-46); MONOCYTES ABSOLUTE MAN 0.24 K/mm3 (0.16-1.47); MONOCYTES PERCENT MAN 1 % (4-13); MYELOCYTE ABSOLUTE MAN 0.48 K/mm3 (0.00-0.00); MYELOCYTE PERCENT MAN 2 % (0-0); NEUTROPHILS ABSOLUTE MAN 23.11 K/mm3 (1.96-9.15); SEG NEUTROPHILS PERCENT MAN 79 % (41-73); TOTAL CELLS COUNTED 100
--- NOTE | 2020-09-29 05:08 | NUR ---
HAVE INCREASED HARPER-SYNEPHRINE TO 80 MCG'S PER MINUTE. WILL TITRATE TO KEEP MAP > 65. PT HAS CONTINUATION OF SAME DRAINAGE FROM OGT. MAINTAINS > 90 PERCENT SATURATION WITH CURRENT VENT SETTINGS. WILL CONTINUE TO MONITOR PT, AND WILL REPORT OFF TO ONCOMING RN.
[2020-09-29 05:16] LABS: PCO2 Arterial 29.1 mmHg (35-45); PO2 Arterial 57.4 mmHg (80-100); pH Blood Arterial 7.46 (7.35-7.45)
--- NOTE | 2020-09-29 07:30 | NUR ---
PT RECEIVED FROM JENNA KATE. PT ON VENTILATOR /5/40%. OG TUBE TO LIS WITH COFFEE GROUND RETURN. LUNGS COARSE ON THE LEFT, RALES LLL, RIGHT SIDE DIMINISHED. ABDOMEN ROUND,DISTENDED,SEMI SOFT, BOWEL TONES QUIET, VARGAS DRAINING TO GRAVITY, YELLOW RETURN. HANDS,FOREARMS,CALVES,FEET SWOLLEN WITH 1+ EDEMA. POOR SKIN COLOR, COOL EXTREMITIES. SEE FLOWSHEET FOR DRIPS.
--- NOTE | 2020-09-29 11:00 | NUR ---
HERE, DISCUSSING DOING AN EGD FOR BLEEDING. PT'S FAMILY IN CONVERSATION WITH PALLIATIVE CARE RN FOR CONSENT. PALLIATIVE CARE RN AND FAMILY HAD A "MEETING" AND DISCUSSED WANTING TO CONTINUE WITH ALL MEASURES TO FIGHT THIS DISEASE. MADE AWARE BUT HAD ALREADY RETURNED TO CLINIC, WILL COME BY AFTER CLINIC TO SCOPE PATIENT.
--- NOTE | 2020-09-29 12:00 | NUR ---
PT WITH LEFT EYE WANDERING, LOOKING CROSS EYED. SCLERA REMAIN SWOLLEN. OPENS EYES TO VOICE, DOESN'T FOLLOW COMMANDS, NO HAND SQUEEZE, NO FOOT WIGGLES ON COMMAND. PT CONTINUES TO OPEN EYES TO VOICE.
--- NOTE | 2020-09-29 14:30 | NUR ---
PT WITH HEAD TURNS AND LEG MOVEMENT. DAUGHTER IN WITH PATIENT, FAMILY OUTSIDE THE WINDOW.
--- NOTE | 2020-09-29 14:41 | NUR ---
Received a call from pt's daughter Cristina. She reports all of the siblings will be arriving today to have a family meeting regarding pt's current status. His daughter Cristina meantions pt is griving the of his several months ago, and she is concernered he is "giving up" because of this. She also states that her brother heard yesterday from a staffmember in ICU that pt had a good day yesterday, and that he was under the impression pt was improving. She states concern that there is miscommunication, and wonders if her dad is improving more than this RN is aware of. She states everyone is not on the same page. I gently reminded her that pt has multpile organds in failure, and that his status is poor. She states she will be in later today for a family meeting.
--- NOTE | 2020-09-29 16:00 | NUR ---
PT CONTINUES WITH UNEVEN GAZE, PT CONTINUES WITH SATS DROPPING IN THE HIGH 80S WITHOUT ANY INDICATION. PT SUCTIONED WITH SCANT RETURN, 100% OXYGEN GIVEN FOR ASSIST. WHEN DAUGHTER CAME OUT OF ROOM, SHE STATED THAT THE PATIENT WAS FOLLOWING HER WITH HIS GAZE, THAT HE LOOKED OUT TO THE FAMILY OUTSIDE THE WINDOW, THAT HE WAS CRYING. SHE STATES THAT HE WAS WIGGLING HIS FEET AND MOVING HIS HEAD. I ASKED ABOUT THE CROSS EYES AND SHE SAID NO HE DIDN'T HAVE ANY OF THAT. FOR ME, PATIENT CONTINUES TO HAVE THE CROSS EYES, NOT FOLLOWING COMMANDS, NO SQUEEZE OF HANDS OR TOES WIGGLE ON COMMAND. PT DOESN'T FOLLOW THIS RN WITH HIS EYES. HE CONTINUES TO OPEN HIS EYES TO VOICE ONLY.
--- NOTE | 2020-09-29 16:57 | NUR ---
Family came and stood outside of pt's window today; oldest daughter Heide spent time with pt in his room. Daughter Cristina appears to continue to hold hope that pt is improving, as she stated Heide tells her pt was moving his mouth and blinking his eyes. They are awaiting results from Endoscopy. Cristina has stated several times today, "My dad has been in bad positions before, and he always pulls through. She also states they will not be making any further decision until they have results from the scope. Cristina also requests a call from Dr. Mandujano. Spoke to him this afternoon regarding the conversations, and he will follow up with a call to her.
--- NOTE | 2020-09-29 18:34 | NUR ---
09/29/20 1834 KAVYA LAUREN History, Chart, Medications and Allergies reviewed before start of procedure. 3-LEAD EKG REVIEWED WITH PHYSICIAN PRIOR TO START OF PROCEDURE. MONITOR INTACT WITH CONTINUOUS PULSE OXIMETRY AND INTERMITTENT BP. O2 PT INTUBATED.
--- NOTE | 2020-09-29 19:14 | NUR ---
LATE ENTRY: HERE TO PERFORM EGD @ 1800, CREW IN ROOM. PROPOFOL UP TO 50MCG/KG/MIN AT 1818. THEN AT 1824 @ 70MCG/KG/MIN. AT COMPLETION OF EGD @ 1837 PROPOFOL BACK TO 20 MCG/KG/MIN. PT TOLERATED PROCEDURE WELL, OXYGEN WAS UP TO 100% X2 DURING PROCEDURE.
--- NOTE | 2020-09-29 20:00 | NUR ---
ASSUMED CARE OF PT AT 1915. REPORT RECEIVED. PT PRESENTS IN BED. VENTED - AC 16, Tv 470, FIO2 55 PERCENT, AND PEEP 5. PT MAINTAINS SATURATIONS > 90 PERCENT. PT NOTED TO HAVE EAP SPECIALIST COLORED SECRETIONS FROM [employer]. NO LONGER COFFEE GROUND IN APPEARANCE. ETT SUCTIONING WITH RETURN OF PINK COLORED SECRETIONS. WILL REVIEW CHART AND PLAN OF CARE FOR THIS PT.
[2020-09-30 03:43] LABS: Hematocrit 21.5 % (37.0-53.0); Mean Corpuscular HGB 29.4 pg (26.0-34.0); Mean Corpuscular HGB Conc 32.6 g/dL (31.5-36.5); Mean Corpuscular Volume 90 fL (80-100); Mean Platelet Volume 12.7 fL (9.1-12.4); NRBC ABSOLUTE 0.52 K/mm3 (0.00-0.02); NRBC Auto 2.4 /100 WBC (0.0-0.2); Platelet Count 91 K/mm3 (150-400); RDW Coefficient Variation 15.7 % (11.7-14.2); RDW Standard Deviation 50.5 fL (35.1-46.3); Red Blood Cell Count 2.38 M/mm3 (4.30-5.90); White Blood Cell Count 21.61 K/mm3 (4.00-11.30)
[2020-09-30 04:01] LABS: Anion Gap 5 mmol/L (6-16); Blood Urea Nitrogen 26 mg/dL (8-24); Bun/Creatinine Ratio 34.5 (12.0-20.0); CO2, Blood 23 mmol/L (21-32); Calcium, Blood 7.1 mg/dL (8.5-10.1); Chloride, Blood 111 mmol/L (98-108); Creatinine, Blood 0.75 mg/dL (0.60-1.20); Glomerular Filtration Rate >60 (60-); Glucose, Blood 324 mg/dL (70-99); Phosphorus, Blood 3.6 mg/dL (2.5-4.9); Potassium, Blood 4.6 mmol/L (3.5-5.5); Sodium, Blood 139 mmol/L (136-145)
[2020-09-30 05:30] LABS: BAND PERCENT MAN 7 % (0-8); BASOPHILS PERCENT MAN 0 % (0-2); EOSINOPHILS ABSOLUTE MAN 0.21 K/mm3 (0.00-0.68); EOSINOPHILS PERCENT MAN 1 % (0-6); LYMPHOCYTES ABSOLUTE MAN 0.64 K/mm3 (0.84-5.20); LYMPHOCYTES PERCENT MAN 3 % (21-46); METAMYELOCYTE ABSOLUTE MAN 0.86 K/mm3 (0.00-0.00); METAMYELOCYTE PERCENT MAN 4 % (0-0); MONOCYTES ABSOLUTE MAN 0.43 K/mm3 (0.16-1.47); MONOCYTES PERCENT MAN 2 % (4-13); MYELOCYTE ABSOLUTE MAN 0.21 K/mm3 (0.00-0.00); MYELOCYTE PERCENT MAN 1 % (0-0); NEUTROPHILS ABSOLUTE MAN 19.23 K/mm3 (1.96-9.15); SEG NEUTROPHILS PERCENT MAN 82 % (41-73); TOTAL CELLS COUNTED 100
--- NOTE | 2020-09-30 05:42 | NUR ---
HAVE MOVED FOREHEAD SATURATION MONITOR Q 2 HOURS WITH TURNS TO PROTECT SKIN INTEGRITY. HAVE STARTED 18 GAUGE POWER GLIDE IV IN LEFT UPPER ARM FOR ADDITIONAL NEEDED ACCESS. PT TOLERATES WELL. HAS HAD EPISODE THIS AM WHEREAS HIS OXYGEN SATURATION DROPS TO LOW 80 PERCENTS. SUCTIONED PT AND INCREASED FIO2 WITH SOME IMPROVEMENT. DID DO APPROX 3 ML LAVAGE AND THEN WAS ABLE TO SUCTION A SMALL AMOUNT OF THICK YELLOW/MOTTA SECRETIONS. PT'S OXYGEN SATURATION IMPROVED TO 94-95 PERCENT. HARPER-SYNEPHRINE REMAINS AT 20. WILL CONTINUE TO MONITOR PT, AND WILL REPORT OFF TO ONCOMING RN.
--- NOTE | 2020-09-30 12:01 | NUR ---
SEDATION VACATION: PT HAS BEEN OFF PROPOFOL FOR 30 MINUTES. HIS RESPIRATORY RATE IS IN THE 40S. HE HAS HIS EYES OPEN, ABLE TO WIGGLE TOES ON THE LEFT FOOT, NO SQUEEZE OF HAND ON COMMAND FOR EITHER SIDE. THE TOES ON THE RIGHT LEG DO NOT MOVE. PT ABLE TO TURN HEAD, BUT NOT ABLE TO FOCUS ON ME. LEFT EYE STILL NOT EVEN WITH THE RIGHT. LEFT ARM MOVEMENT, LEFT LEG MOVEMENT. PT UNABLE TO SLOW DOWN HIS RESPIRATIONS, DID SEEM TO LOOK AT ME WITH THE LEFT EYE, NOT SURE WITH THE RIGHT. TURNING THE SEDATION BACK ON TO TRY TO CONTROL RESPIRATORY COMPLIANCE.
--- NOTE | 2020-09-30 15:34 | NUR ---
ASSUMED CARE: REPORT RECIEVED FROM JENNA DUMONT. PT RESTING IN BED, VENTILATED. SETTINGS AC 16/470/5/55%. SCLERAL EDEMA NOTED AND RIGHT PUPIL SLUGGISH TO LIGHT WITH NO RESPONSE NOTED TO LEFT PUPIL. OG IN PLACE AT LIS WITH GREEN OUTPUT NOTED. VARGAS IN PLACE WITH CLEAR YELLOW URINE. EDEMA TO BILATERAL ARMS. CURRENTLY ON 40MCG/KG/MIN OF PROPOFOL WITH RR IN 30S. HARPER RUNNING AT 20MCG/MIN AND VASOPRESSIN AT 0.04 UNITS PER MINUTE. VSS AT THIS TIME. SLIGHT TEMP NOTED AT 100.2. BLANKETS PULLED DOWN. PROTONIX GTT RUNNING WELL TPN AND AMIODORONE. BILATERAL WRIST RESTRAINTS IN PLACE. NO FURTHER NEEDS AT THIS TIME
--- NOTE | 2020-09-30 18:22 | NUR ---
SHIFT SUMMARY: PT IS ON 35MCG/KG OF PROPOFOL. PRESSORS OFF AT THIS TIME. PROTONIX GTT RUNNING. TPN THROUGH PICC LINE AND AMIODORONE GTT RUNNING AT CONTINUOUS RATE. MEDICATED X1 FOR PAIN AND X1 FOR FEVER. FOREHEAD SPO2 PROBE MOVED AT END OF SHIFT WITH SKIN WITHOUT BREAKDOWN UNDERNEATH. CONTINUES TO BE INTUBATED AT AC 16/470/55/5.
--- NOTE | 2020-09-30 20:00 | NUR ---
ASSUMED CARE OF PT AT 1915. REPORT RECEIVED. PT PRESENTS IN BED - VENTED. AC 16, Tv 470, FIO2 55%, PEEP 5. DR SOLER IN UNIT. WISHES TO HOLD OFF ON WEAN OR SEDATION VACATION IN THE AM FOR THIS SHIFT. PT'S BLOOD PRESSURES MAINTAINING WITHOUT SUPPORT OF PRESSORS AT THIS TIME. PT MEDICATED WITH 50 MCG FENTANYL FOR VENT TOLERANCE. PT'S RESPIRATORY RATE WAS IN HIGH 30'S TO 40'S. AFTER MEDICATION, PT'S RESPIRATORY RATE RETURNS TO NEAR 30'S WHICH IS NORMAL FOR THIS PT. WILL REVIEW CHART AND PLAN OF CARE FOR THIS PT.
--- NOTE | 2020-09-30 22:30 | NUR ---
FULL BEDBATH COMPLETED. PT TOLERATED WELL. PROPOFOL AT 35 MCG/KG/MIN ADEQUATE TO PROVIDE VENT TOLERANCE. HAVE ADMINISTERED 50 MCG'S FENTANYL ONCE FOR IMPROVED TOLERANCE. THIS WAS AFFECTIVE. PT HAS LIGHT GREEN LIQUID FROM OGT TO LIWS. ETT SUCTIONING HAS BEEN DONE WITH RETURN OF LIGHT YELLOW SECRETIONS. NO APPEARANCE OF BLOOD IN SECRETIONS. OGT WITH LIGHT GREEN COLORED LIQUID. NO COFFEE GROUND APPEARANCE. WILL CONTINUE TO MONITOR PT.
[2020-10-01 04:36] LABS: BASOPHILS ABSOLUTE AUTO 0.06 K/mm3 (0.00-0.23); BASOPHILS PERCENT AUTO 0 % (0-2); Hematocrit 22.4 % (37.0-53.0); Hemoglobin 7.1 g/dL (13.5-17.5); LYMPHOCYTES ABSOLUTE AUTO 0.64 K/mm3 (0.84-5.20); LYMPHOCYTES PERCENT AUTO 3 % (21-46); MONOCYTES ABSOLUTE AUTO 1.06 K/mm3 (0.16-1.47); MONOCYTES PERCENT AUTO 5 % (4-13); Mean Corpuscular HGB 28.9 pg (26.0-34.0); Mean Corpuscular HGB Conc 31.7 g/dL (31.5-36.5); Mean Corpuscular Volume 91 fL (80-100); Mean Platelet Volume 12.8 fL (9.1-12.4); NRBC ABSOLUTE 0.56 K/mm3 (0.00-0.02); NRBC Auto 2.8 /100 WBC (0.0-0.2); Platelet Count 77 K/mm3 (150-400); RDW Coefficient Variation 15.9 % (11.7-14.2); RDW Standard Deviation 51.6 fL (35.1-46.3); Red Blood Cell Count 2.46 M/mm3 (4.30-5.90); White Blood Cell Count 19.65 K/mm3 (4.00-11.30)
[2020-10-01 04:39] LABS: EOSINOPHILS PERCENT AUTO 1 % (0-6); IMMATURE GRAN ABSOLUTE AUTO 1.72 K/mm3 (0.00-0.10); IMMATURE GRAN PERCENT AUTO 9 % (0-1); NEUTROPHILS ABSOLUTE AUTO 15.97 K/mm3 (1.96-9.15); NEUTROPHILS PERCENT AUTO 81 % (41-73)
[2020-10-01 04:51] LABS: Anion Gap 6 mmol/L (6-16); Blood Urea Nitrogen 26 mg/dL (8-24); CO2, Blood 24 mmol/L (21-32); Calcium, Blood 7.3 mg/dL (8.5-10.1); Chloride, Blood 111 mmol/L (98-108); Creatinine, Blood 0.87 mg/dL (0.60-1.20); Glomerular Filtration Rate >60 (60-); Glucose, Blood 178 mg/dL (70-99); Potassium, Blood 4.8 mmol/L (3.5-5.5); Sodium, Blood 141 mmol/L (136-145)
[2020-10-01 05:13] LABS: BAND PERCENT MAN 3 % (0-8); BASOPHILS PERCENT MAN 0 % (0-2); EOSINOPHILS ABSOLUTE MAN 0.19 K/mm3 (0.00-0.68); EOSINOPHILS PERCENT MAN 1 % (0-6); LYMPHOCYTES ABSOLUTE MAN 0.39 K/mm3 (0.84-5.20); LYMPHOCYTES PERCENT MAN 2 % (21-46); METAMYELOCYTE ABSOLUTE MAN 0.98 K/mm3 (0.00-0.00); METAMYELOCYTE PERCENT MAN 5 % (0-0); MONOCYTES ABSOLUTE MAN 0.39 K/mm3 (0.16-1.47); MONOCYTES PERCENT MAN 2 % (4-13); NEUTROPHILS ABSOLUTE MAN 17.68 K/mm3 (1.96-9.15); SEG NEUTROPHILS PERCENT MAN 87 % (41-73); TOTAL CELLS COUNTED 100
--- NOTE | 2020-10-01 06:23 | NUR ---
PT HAS BEEN OFF PRESSORS FOR ENTIRITY OF SHIFT. LOWEST SBP IN 90'S. MAINTAINS MAP > 60. VENT REMAINS AT AC 16, Tv 470, FIO2 55-60 % PEEP 5. PT TOLERATES Q 2 HOUR TURNS. HAVE SUCTIONED PT WITH RETURN OF LIGHT YELLOW SECRETIONS. NO S/S BLEEDING. OGT WITH GREEN COLORED LIQUID. WILL CONTINUE TO MONITOR PT, AND WILL REPORT OFF TO ONCOMING RN.
--- NOTE | 2020-10-01 08:00 | NUR ---
JANAK IS ON THE VENT /, HE IS BREATHING OVER THE VENT AT A RATE IN THE 30'S. HE IS ON PROPOFOL AT 35MCG/KG/MIN INFUSING IN HIS TEE PICC. HE IS ON AMIODARONE AT 0.5MG INFUSING IN HIS TEE PICC. HE ALSO HAS CPN AT 65ML/HR INFUSING IN HIS TEE PICC. HIS OG TUBE IS TO LIS WITH GREEN THIN RETURN. HIS ABDOMEN IS LARGE, DISTENDED AND FIRM. HIS VARGAS IS DRAINING TO GRAVITY. HIS SCROTUM AND PENIS ARE EDEMATOUS, PANNUS RED/DRY WITH MICONAZOLE IN PLACE. HIS LOWER EXTREMITIES ARE COOL/EDEMATOUS AND DIFFICULT TO FEEL PULSES. THEY ARE DISCOLORED FROM JUST BELOW THE KNEE. ARMS ARE SWOLLEN,HANDS ARE SWOLLEN, WRIST RESTRAINTS IN PLACE. PT REPOSITIONED. HE IS UNRESPONSIVE TO VERBAL OR PAINFUL STIMULI WITH THE PROPOFOL AT THIS RATE. UPDATE TO .
--- NOTE | 2020-10-01 11:11 | NUR ---
BEGINNING A UNIT OF PRBC'S PER ORDER. PT TOLERATING AT THIS TIME. HEPARIN GTT HAS BEEN RESTARTED PER PHARMACY RECOMMENDATIONS. NO OTHER CHANGES AT THIS TIME.
--- NOTE | 2020-10-01 12:57 | NUR ---
UNIT OF BLOOD INFUSED, PT MEDICATED WITH FENTANYL 50MCG FOR RESTLESSNESS AND INCREASED RESPIRATORY RATE. PT WAS REPOSITIONED AND SAT UP AND BEGAN BREATHING FASTER. WILL CONTINUE WATCHING.
--- NOTE | 2020-10-01 14:08 | NUR ---
PT'S DAUGHTER IN TO VISIT, PROPOFOL PUT ON STANDBY PER . WANT TO SEE HIS LEVEL OF FUNCTIONING WITH FAMILY PRESENT. REMAINDER OF FAMILY OUTSIDE OF THE WINDOW.
--- NOTE | 2020-10-01 15:12 | NUR ---
PT HAS BEEN OFF SEDATION FOR THE LAST HOUR OR SO FOR FAMILY. HE HAS BEEN ABLE TO LOOK AT ME, ANSWER ME WITH HEAD SHAKE, MOVE BOTH UPPER EXTREMITIES AND THE LEFT LOWER LEG. HE HAS NOT MOVED THE RIGHT LEG. HIS RESPIRATORY RATE WAS INCREASING AND SO I MEDICATED HIM WITH FENTANYL 50MCG. HE WAS ABLE TO SLOW DOWN HER BREATHING, YET THE DAUGHTER HAS GOTTEN HIM RILED A LITTLE BIT. THE SEDATION HAS BEEN TURNED BACK ON FOR PATIENT COMFORT.
--- NOTE | 2020-10-01 17:50 | NUR ---
JANAK HAS BEEN BREATHING RAPIDLY FOR MOST OF THE DAY, HE HAS BEEN MEDICATED WITH FENTANYL 50MCG ONCE. RESPIRATORY THERAPY JUST CAME IN AND INCREASED HIS FIO2 TO 60% D/T SATS HANGING IN THE MID 80S. HIS ET HAS RETURNED BLOOD TINGED YELLOW RETURN FOR THE LAST COUPLE OF HOURS. AWARE. HE CONTINUES ON HEPARIN @ 18U/KG, AMIODARONE @ 0.5MG/HR, PROPOFOL @ 35MCG/KG/MIN, CPN @ 65 ML/HR, PROTONIX @ 10ML, HE JUST RECEIVED A DOSE OF METOPROLOL 25MG PT FOR RATE CONTROL OF THE RVR. HIS HANDS/ARMS/FEET/CALVES STILL EDEMATOUS AND COOL TO THE TOUCH. 400ML OF GREEN RETURN FROM HIS OGT. VARGAS WITH 750 OUTPUT. NO BM. HIS PANNUS AND SCROTUM REMAINS HOT AND RED WITH MICONAZOLE DIRECTED.
--- NOTE | 2020-10-01 20:44 | NUR ---
PATIENT INTUBATED AND SEDATED WITH PROPOFOL TITRATED UP TO 45 MCG FROM 35 MCG DUE TO RESP 40. AND FENTANYL GIVEN AND RESP RATE DOWN TO 35. SUCTIONING THICK BLOOD TINGED MOTTA SPUTUM. VENT SET AT AC 16, TV 470, PEEP 5, FIO2 65% AMIODARONE DRIP 0.5 MG/MIN CONTINUES UNTIL 0530 WHICH WILL BE 12 HRS AFTER FIRST DOSE OF METOPROLOL. HEPARIN DRIP CONTINUES INCREASED RATE PER PHARMACY. AFIB CONTINUES. BP STABLE.
[2020-10-02 02:28] LABS: Hematocrit 23.1 % (37.0-53.0); Hemoglobin 7.3 g/dL (13.5-17.5); Mean Corpuscular HGB 28.4 pg (26.0-34.0); Mean Corpuscular HGB Conc 31.6 g/dL (31.5-36.5); Mean Corpuscular Volume 90 fL (80-100); Mean Platelet Volume 12.6 fL (9.1-12.4); NRBC ABSOLUTE 0.51 K/mm3 (0.00-0.02); NRBC Auto 3.3 /100 WBC (0.0-0.2); Platelet Count 75 K/mm3 (150-400); RDW Coefficient Variation 17.1 % (11.7-14.2); Red Blood Cell Count 2.57 M/mm3 (4.30-5.90); White Blood Cell Count 15.52 K/mm3 (4.00-11.30)
[2020-10-02 02:42] LABS: Anion Gap 5 mmol/L (6-16); Blood Urea Nitrogen 29 mg/dL (8-24); Bun/Creatinine Ratio 32.9 (12.0-20.0); CO2, Blood 25 mmol/L (21-32); Calcium, Blood 7.3 mg/dL (8.5-10.1); Chloride, Blood 109 mmol/L (98-108); Creatinine, Blood 0.88 mg/dL (0.60-1.20); Glomerular Filtration Rate >60 (60-); Glucose, Blood 152 mg/dL (70-99); Potassium, Blood 5.1 mmol/L (3.5-5.5); Sodium, Blood 139 mmol/L (136-145)
--- NOTE | 2020-10-02 05:21 | NUR ---
DOCTOR SOLER NOTIFIED OF INCREASED OXYGEN DEMAND, AND CONTINUED RESP 35-40 DESPITE PROPOFOL 45 MCG, FENTANYL, AND ATIVAN. DAVID ABBOTT ALSO TALKED TO DOCTOR SOLER REGARDING VENT CHANGES. VENT NOW AT AC 16, TV 430, PEEP 10, FIO2 75% . ORDER OBTAINED FOR NIMBEX DRIP. TRAIN OF 4 CHECK TO LEFT EYEBROW /. BIS SET UP WITH READING OF 97. PROPOFOL INCREASED TO 50 MCG.
--- NOTE | 2020-10-02 06:40 | NUR ---
PATIENT REMAINS INTUBATED VENT SETTING CHANGED TO AC 18, TV 430, PEEP 10, FIO2 75% PATIENT NOW PARALYZED WITH NIMBEX 2 MCG TRAIN OF 4 4/4, SEDATION WITH PROPOFOL 50 MCG BIS 44. HEPARIN DRIP TITRATED BY PHARMACY NOW 20.5 UNITS. NO SIGN OF ACTIVE BLEED SEEN. OG CONTINUES LIS WITH BROWN/GREEN DRAINAGE. VARGAS DRAINING ORANGE URINE. GENERALIZED EDEMA CONTINUES WITH SMALL AMT OF WEEPING SEEN TO LEFT ARM. AMIODARONE DRIP NOW OFF.
--- NOTE | 2020-10-02 07:10 | NUR ---
IN ROOM RECEIVING REPORT, PT'S BLOOD PRESSURE NOT READING, THEN READING MEAN ONLY. LEVOPHED ADJUSTED, SEE FLOWSHEET.
--- NOTE | 2020-10-02 07:50 | NUR ---
PT ON VENTILATOR, RATE 18, TIDAL VOLUME 430, PEEP 10, FI02 75%. HE IS ON NIMBEX 2, PROPOFOL 50, LEVOPHED @ 10, HEPARIN @ 20.5, PROTONIX @ 10, CPN @ 65. HE HAS A POWERGLIDE IN THE STAR, PICC IN [facility]. HIS BODY IS EDEMATOUS FROM NECK DOWN, HIS SKIN IS TIGHT AND WEEPING. LOWER EXTREMITIES DISCOLORED FROM CALF DOWN, SCALY AND TAUT. VARGAS TO GRAVITY DRAINAGE, SCROTAL AND PENILE EDEMA, REDNESS IN GROIN FOLDS AND PANNUS. BIS BETWEEN 35-40. OG TO LIS WITH GREENISH RETURN.
--- NOTE | 2020-10-02 08:50 | NUR ---
SATS STAYING @ 85%, FIO2 INCREASED TO 80% PEEP TO 12. SUCTIONED. NO CHANGE. 0856 UP TO 85% FIO2. CHEST XRAY AND BLOOD GAS ORDERED BY .
[2020-10-02 09:16] LABS: PO2 Arterial 76.6 mmHg (80-100)
[2020-10-02 09:19] LABS: pH Blood Arterial 7.16 (7.35-7.45)
--- NOTE | 2020-10-02 09:20 | NUR ---
AFTER RESULTS OF ABG, RATE OF VENTILATOR UP TO 24. WOULD LIKE THE NIMBEX OFF AND THE FENTANYL USED WITH THE PROPOFOL. SHE IS ADDING IN VASOPRESSIN FOR THE SOFT BLOOD PRESSURE.
--- NOTE | 2020-10-02 11:34 | NUR ---
HAVING DIFFICULTY OBTAINING BPS FROM WRIST CUFF, CUFF PUT ON RIGHT CALF WITH GOOD RESULTS. LEVO TITRATED DOWN.
[2020-10-02 12:19] LABS: Base Excess Venous -5.7 mmol/L; Bicarbonate Venous 19.6 mmol/L (24.0-30.0); PO2 Venous 68.5 mmHg (38-42); pH Blood Venous 7.21 (7.34-7.37)
--- NOTE | 2020-10-02 15:13 | NUR ---
JANAK CONTINUES ON THE LEVO @ 15MCG/MIN. BP IS STAYING LABILE, WITH DYASTOLIC REGISTERING LOW. AWARE. PROPOFOL REMAINS @ 40MCG/KG/MIN, VASO ON SB.
--- NOTE | 2020-10-02 18:32 | NUR ---
JANAK IS ON THE VENTILATOR AT 24/430/10/70%. HE HAS BEEN ABLE TO MAIN GOOD SAT >95 AND R/T AND HAVE TITRATED DOWN THE FIO2. HE IS ON VASOPRESSIN @ 10MCG/MIN, HEPARIN @ 20.5U/KG/MIN, PROPOFOL @ 35MCG/KG/MIN. CPN @ 65ML/HR. OG WITH GREENISH/BROWN RETURN ABOUT 150ML THIS SHIFT. NO BOWEL TONES HEARD TODAY. VARGAS TO GRAVITY DRAINAGE 300ML OUT THIS SHIFT. PT CONTINUES TO BE EDEMATOUS FROM THE NECK DOWN, SKIN TAUT, ARMS LEAKING FLUID. TOES COOL, FEET MOTTLED, EYES MORE RESPONSIVE THIS AFTERNOON. HE HAS NOT HAD ANY SPONTANEOUS MOVEMENT THIS SHIFT. HE TOLERATED HIS ORAL CARE WITHOUT INCIDENT. HE CONTINUES WITHOUT GAG OR COUGH. THE BED IS ROTATING 50% 30MIN.EACH SIDE. PT TOLERATING WELL. BP CUFF REMAINS ON THE LEG, BIS MONITOR ON THE FOREHEAD, CONTINUES READING HI 30'S. TOF 4/4 ON 9 ALL 4 TIMES TODAY. WILL REPORT OFF TO NEXT SHIFT.
--- NOTE | 2020-10-02 18:49 | NUR ---
NOTIFIED OF U/O. SHE WOULD LIKE TO CONTINUE TO WATCH HIM. NO FLUID BOLUS/NO DIURETIC AT THIS TIME. SHE WOULD LIKE TO CONTINUE TO TITRATE DOWN THE PROPOFOL,ONLY AFTER ORAL CARE.
--- NOTE | 2020-10-02 19:30 | NUR ---
CARE ASSUMED PT SEDATED ON VENT IN NEGITIVE PRESSURE ROOM. PROPOFOL INFUSING @ 35 MCK/KG/MIN. HEPARIN GTT INFUSING 20.5 UNITS /KG/HR. BIS 35. VITALS NOTED IN FLOWSHEET. CONTINE ASSESSMENT AND CARE.
--- NOTE | 2020-10-02 21:48 | NUR ---
HEPARIN GTT INCREASED PER ORDER.
--- NOTE | 2020-10-02 23:17 | NUR ---
ASSESSMENT PT ON VENT A/C VC RATE 24 PT RR 34, TV 430/FIO2 65% 10 PEEP. RT HERE, CHANGE FIO2 TO 60%, AWARE OF RATE. BS: COURSE BILAT UPPER, DECREASED CRACKLES LOWER, SXN: SMALL AMT THICK CREAMY YELLOW SECREATIONS, WITH A POSITIVE COUGH. ORAL CARE DONE , NO GAG. ABD REMAINS DISTENDED, NO BT ALL QUADS NOTED. OG TUBE IN PLACE TO LIS, BROWN OUTPUT. VARGAS IN PLACE WITH YELLOW OUTPUT. EDEMA NOTED T/O, SKIN IS TAUT, REMAINS COOL TO TOUCH. T 96.6-RN REGISTRY NOTIFIED-WILL PLACE RECTUM TEMP PROBE. TURNING VIA BED Q 30 MIN, REPOSITION LIMBS Q 2 HR WITH PILLOW SUPPORT AND ROM DONE. CONTINUE TO ASSESS.
--- NOTE | 2020-10-03 03:31 | NUR ---
NO RECTAL TEMP PROBE AVAILABLE. RECTAL TEMP DONE = 99.8 @ 0120.
[2020-10-03 05:19] LABS: BASOPHILS ABSOLUTE AUTO 0.07 K/mm3 (0.00-0.23); BASOPHILS PERCENT AUTO 0 % (0-2); Hematocrit 25.4 % (37.0-53.0); Hemoglobin 7.8 g/dL (13.5-17.5); Mean Corpuscular HGB Conc 30.7 g/dL (31.5-36.5); Mean Corpuscular Volume 91 fL (80-100); NRBC ABSOLUTE 0.58 K/mm3 (0.00-0.02); NRBC Auto 3.3 /100 WBC (0.0-0.2); Platelet Count 93 K/mm3 (150-400); RDW Coefficient Variation 17.3 % (11.7-14.2); RDW Standard Deviation 55.2 fL (35.1-46.3); Red Blood Cell Count 2.79 M/mm3 (4.30-5.90)
[2020-10-03 05:32] LABS: EOSINOPHILS ABSOLUTE AUTO 0.38 K/mm3 (0.00-0.68); EOSINOPHILS PERCENT AUTO 2 % (0-6); IMMATURE GRAN ABSOLUTE AUTO 0.92 K/mm3 (0.00-0.10); IMMATURE GRAN PERCENT AUTO 5 % (0-1); LYMPHOCYTES ABSOLUTE AUTO 0.62 K/mm3 (0.84-5.20); LYMPHOCYTES PERCENT AUTO 4 % (21-46); MONOCYTES ABSOLUTE AUTO 0.89 K/mm3 (0.16-1.47); MONOCYTES PERCENT AUTO 5 % (4-13); Mean Platelet Volume 12.2 fL (9.1-12.4); NEUTROPHILS ABSOLUTE AUTO 14.82 K/mm3 (1.96-9.15); NEUTROPHILS PERCENT AUTO 84 % (41-73)
[2020-10-03 05:37] LABS: BAND PERCENT MAN 2 % (0-8); BASOPHILS PERCENT MAN 0 % (0-2); EOSINOPHILS ABSOLUTE MAN 0.53 K/mm3 (0.00-0.68); EOSINOPHILS PERCENT MAN 3 % (0-6); LYMPHOCYTES ABSOLUTE MAN 0.35 K/mm3 (0.84-5.20); LYMPHOCYTES PERCENT MAN 2 % (21-46); MONOCYTES ABSOLUTE MAN 0.17 K/mm3 (0.16-1.47); MONOCYTES PERCENT MAN 1 % (4-13); NEUTROPHILS ABSOLUTE MAN 16.63 K/mm3 (1.96-9.15); SEG NEUTROPHILS PERCENT MAN 92 % (41-73); TOTAL CELLS COUNTED 100
[2020-10-03 05:42] LABS: Alanine Aminotransfer (ALT/SGP 534 U/L (12-78); Albumin, Blood 1.5 g/dL (3.4-5.0); Albumin/Globulin Ratio 0.4 (0.8-1.8); Alk Phos 68 U/L (50-136); Anion Gap 3 mmol/L (6-16); Aspartate Aminotrans (AST/SGOT 722 U/L (12-37); Bilirubin, Total 3.2 mg/dL (0.1-1.0); Blood Urea Nitrogen 39 mg/dL (8-24); Bun/Creatinine Ratio 36.1 (12.0-20.0); CO2, Blood 26 mmol/L (21-32); Calcium, Blood 7.3 mg/dL (8.5-10.1); Chloride, Blood 105 mmol/L (98-108); Creatinine, Blood 1.08 mg/dL (0.60-1.20); Globulin, Blood 3.5 g/dL (2.2-4.0); Glomerular Filtration Rate >60 (60-); Glucose, Blood 156 mg/dL (70-99); Potassium, Blood 5.7 mmol/L (3.5-5.5); Sodium, Blood 134 mmol/L (136-145)
--- NOTE | 2020-10-03 05:56 | NUR ---
REASSESS PT REMAINS ON VENT A/C VC MODE RATE 24, TV 430, PEEP 10, 60%. PT'S RR 28-35 OVERNIGHT. 50 MCG FENT IV PUSH GIVEN FOR PAIN, NO CHANGE. PROPOFOL GTT WAS ATTEMPT TO WEAN-PT ALARMED VENT SEVERAL TIMES, PT NOW HAS A COUGH WITH SXN, MOD AMTS CREAMY SECREATIONS, AND SLIGHT GAG WITH ORAL CARE. PT REMAINS UNAROUSABLE, DOES NOT MOVE ANY EXTREMITIES. CONTINUE TO ASSESS.
--- NOTE | 2020-10-03 06:04 | NUR ---
PAIN REASSESSMENT PT RR IMPROVED FROM 30 TO 25 POST FENTYNAL 50 MCG IV PUSH. NO OTHER CHANGES NOTED POST MEDICATION. CONTINUE TO ASSESS
--- NOTE | 2020-10-03 10:52 | NUR ---
PT INTUBATED AND SEDATED WITH PROPOFOL. HAVE BEEN TITRATING PROPOFOL DOWN FOR SEDATION VACATION. USING FENTANYL IN CONJUNCTION WHEN RESP RATE INCREASES. PT IS UNRESPONSIVE. NO PUPIL MOVEMENT ALTHOUGH EQUAL IN SIZE. TITRATING LEVOPHED. SEE ASSESSMENT.
--- NOTE | 2020-10-03 18:33 | NUR ---
SUMMARY PT INTUBATED. SEDATION WAS TURNED OFF AROUND 1200 TODAY. PT IS UNRESPONSIVE. EYE'S ARE OPEN BUT NO RESPONSE. NO SPONTANEOUS MOVEMENT OF EXTREMITIES. USING FENTANYL PUSHES WHEN RESP RATE INCREASES. HAS BEEN OFF LEVOPHED SINCE THIS AM. METOPROLOL STARTED DUE TO HTN AND AFIB WITH RATE IN 130'S AT TIMES. PT IS EDEMATOUS T/O. LASIX WAS STARTED TODAY. CPN WAS CHANGED TODAY TO A FORMULA WITH LOWER POTASSIUM LEVEL. ABX CHANGED TODAY D/T WBC GOING UP. FIO2 DOWN FROM 65% TO 55%. NO OTHER CHANGES THIS SHIFT.
--- NOTE | 2020-10-03 19:41 | NUR ---
ASSUMED CARE RECEIVED REPORT FROM JENNA VIDES. PT IS UNRESPONSIVE IN BED - INTUBATED WITH 8.0 ETT, 27 AT TEETH AND 26 AT LIP - ON VENTILATOR AC 24/430/10/55% FIO2. HE IS OFF SEDATION; HEPARIN INFUSING 23 UNITS/KG/HOUR, WEIGHT: 83 KG AND RATE 38.2 ML/HRF (VERIFIED BY PEEWEE, AND ORDER). CPN INFUSING AT 75 ML/HR AND NS TKO. VARGAS PATENT AND DRAINING YELLOW-ORANGE URINE. PICC LINE AND PG SITES WNL. PT IN SINUS TACH RATE 115-128; RR IN 30s, SPO2 94-95%, WITH PEAK PRESSURES < 30; BP STABLE TO MILDLY ELEVATED - MAP > 65; AFEBRILE. BED LOW AND LOCKED.
--- NOTE | 2020-10-04 01:52 | NUR ---
UPDATE PT CONTINUES TO BE UNRESPONSIVE, HOWEVER, AFTER HIS BED BATH HE STARTED TO BLINK OCCASSIONALLY AND HIS PUPILS MOVED VERY SLIGHTLY AND SLOWLY, BUT NOT TRACKING OR PURPOSEFUL AND NOT CONSISTENT. HE HAS A POSITIVE CORNEAL REFLEX. THIS IS ALL NEW FROM START OF SHIFT. PT CONTINUES TO BE TACHYPNEIC, RR IN THE 30s. FENTANYL WAS GIVEN EARLIER DUE TO INCREASED RR AND HR, THIS HELPED BRING HIS RR DOWN TO AROUND 25 BUT ONLY TEMPORARILY. IT HAD INCREASED BACK INTO THE 30s WITHIN THE HOUR. DURING BED BATH, THE PT's VARGAS STATLOCK WAS REMOVED FROM THE ANTERIOR PORTION OF HIS RIGHT THIGH AND UNDERNEATH WAS TWO BLISTERS, ONE POPPED AND ONE NOT. PICTURE WAS TAKEN AND PLACED INTO THE CHART. WILL NEED TO MONITOR SITE CLOSELY AND ROTATE STATLOCK.
[2020-10-04 04:10] LABS: Base Excess Venous -1.8 mmol/L; Bicarbonate Venous 22.6 mmol/L (24.0-30.0); PCO2 Venous 42.6 mmHg (38-42); PO2 Venous 45.1 mmHg (38-42); pH Blood Venous 7.35 (7.34-7.37)
[2020-10-04 04:19] LABS: BASOPHILS ABSOLUTE AUTO 0.04 K/mm3 (0.00-0.23); BASOPHILS PERCENT AUTO 0 % (0-2); EOSINOPHILS ABSOLUTE AUTO 0.29 K/mm3 (0.00-0.68); EOSINOPHILS PERCENT AUTO 2 % (0-6); Hematocrit 25.4 % (37.0-53.0); Hemoglobin 7.9 g/dL (13.5-17.5); IMMATURE GRAN ABSOLUTE AUTO 0.63 K/mm3 (0.00-0.10); IMMATURE GRAN PERCENT AUTO 4 % (0-1); LYMPHOCYTES ABSOLUTE AUTO 0.36 K/mm3 (0.84-5.20); LYMPHOCYTES PERCENT AUTO 2 % (21-46); MONOCYTES ABSOLUTE AUTO 0.88 K/mm3 (0.16-1.47); MONOCYTES PERCENT AUTO 5 % (4-13); Mean Corpuscular HGB 28.1 pg (26.0-34.0); Mean Corpuscular HGB Conc 31.1 g/dL (31.5-36.5); Mean Corpuscular Volume 90 fL (80-100); Mean Platelet Volume 12.3 fL (9.1-12.4); NEUTROPHILS ABSOLUTE AUTO 15.09 K/mm3 (1.96-9.15); NEUTROPHILS PERCENT AUTO 87 % (41-73); NRBC ABSOLUTE 0.56 K/mm3 (0.00-0.02); NRBC Auto 3.2 /100 WBC (0.0-0.2); Platelet Count 100 K/mm3 (150-400); RDW Coefficient Variation 17.4 % (11.7-14.2); Red Blood Cell Count 2.81 M/mm3 (4.30-5.90); White Blood Cell Count 17.29 K/mm3 (4.00-11.30)
[2020-10-04 04:37] LABS: Anion Gap 5 mmol/L (6-16); Blood Urea Nitrogen 47 mg/dL (8-24); Bun/Creatinine Ratio 45.6 (12.0-20.0); CO2, Blood 25 mmol/L (21-32); Calcium, Blood 7.6 mg/dL (8.5-10.1); Chloride, Blood 104 mmol/L (98-108); Creatinine, Blood 1.03 mg/dL (0.60-1.20); Glomerular Filtration Rate >60 (60-); Glucose, Blood 152 mg/dL (70-99); Potassium, Blood 5.7 mmol/L (3.5-5.5); Sodium, Blood 134 mmol/L (136-145)
[2020-10-04 04:50] LABS: BAND PERCENT MAN 1 % (0-8); BASOPHILS PERCENT MAN 0 % (0-2); EOSINOPHILS ABSOLUTE MAN 0.34 K/mm3 (0.00-0.68); EOSINOPHILS PERCENT MAN 2 % (0-6); LYMPHOCYTES ABSOLUTE MAN 0.69 K/mm3 (0.84-5.20); LYMPHOCYTES PERCENT MAN 4 % (21-46); METAMYELOCYTE ABSOLUTE MAN 0.17 K/mm3 (0.00-0.00); METAMYELOCYTE PERCENT MAN 1 % (0-0); MONOCYTES ABSOLUTE MAN 1.21 K/mm3 (0.16-1.47); MONOCYTES PERCENT MAN 7 % (4-13); NEUTROPHILS ABSOLUTE MAN 14.86 K/mm3 (1.96-9.15); SEG NEUTROPHILS PERCENT MAN 85 % (41-73); TOTAL CELLS COUNTED 100
--- NOTE | 2020-10-04 05:20 | NUR ---
END OF SHIFT UPDATE NO MAJOR CHANGES SINCE PREVIOUS UPDATE. PT CONTINUES HIS TACHYPNEA - RR IN THE 30s, PEAK PRESSURES ARE 28-30, AND SPO2 IS 92-93%. REMAINS IN AFIB, RATE 115-130, BP STABLE - MAP > 65. AFEBRILE. HE REMAINS UNRESPONSIVE, BUT SHOWED A POSITIVE RESPONSE TO THE OCULOCEPHALIC AND OCULOVESTIBULAR REFLEXES - THOUGH, PUPILS MOVED SLUGGISHLY. NO CHANGES TO VENT SETTINGS: AC 24/430/10/55%. CURRENT GTTPs: CPN 75 ML/HR, NS TKO, AND HEPARIN 23.5 UNITS/KG/HOUR (WEIGHT: 83 KG). VARGAS IS PATENT DRAINING ORANGE-CLOUDY URINE. NO BM OVERNIGHT. VARGAS STATLOCK WAS ROTATED TO LEFT ANTERIOR THIGH. FEET ARE COOL AND DRY, WHILE UPPER EXTREMITIES ARE WARM AND MOIST. BED IS LOW AND LOCKED.
--- NOTE | 2020-10-04 08:09 | NUR ---
JANAK IS ON THE VENT AC / HE IS BREATHING AT A RATE OF 36. HE HAS EYELID REFLEX, NAIL BED STIMULUS ELICITS NO RESPONSE, PUPILS ARE UNREACTIVE AND SIZE 5. FEET DORSIFLEX TO BABINSKI. HE HAS WHEEZES T/O BOTH SIDES, WITH RHONCHI ON THE RIGHT LOBES. HEART TONES IRREGULAR WITH A CLICK. NO BOWEL TONES, ABD LARGE, ROUND, SEMI SOFT, OG TO LIS, VARGAS WITH DARK KEEGAN/ORANGE RETURN. ALL EXTREMITIES EDEMATOUS, PULSES WEAK. BLINK PRESENT SPONTANEOUS, NO RESPONSE TO STERNAL RUB, DOES HAVE GAG REFLEX.
--- NOTE | 2020-10-04 10:51 | NUR ---
PT STILL NOT RESPONDING TO PAINFUL STIMULUS. HE DOES OPEN HIS EYES AND BLINKS TO EYELASH TOUCH. HE HAS NYSTAGMUS IN THE RIGHT EYE, LEFT EYE NOT FOLLOWING RIGHT. SCLERAL EDEMA L>R. BED TURNING LATERALLY Q 1 MINUTE SIDES.
[2020-10-04 11:23] LABS: Influenza A, PCR NEGATIVE (NEGATIVE); Influenza B, PCR NEGATIVE (NEGATIVE); Resp Syncytial Virus, PCR NEGATIVE (NEGATIVE); SARS-Cov-2 (COVID-19) PCR, MMC POSITIVE (NEGATIVE)
--- NOTE | 2020-10-04 13:26 | NUR ---
JANAK SEEMS TO OPEN HIS EYES TO VOICE. HE HAS NO MOVEMENT. NO LONGER HAS GAG REFLEX. MEDICATED WITH FENTANYL FOR RAPID RESPIRATORY RATE PER .
--- NOTE | 2020-10-04 17:09 | NUR ---
Family conference held at 3pm as planned with Mary, Lise, son-Ciro and cindya by video conference with group. Dr Rodríguez, MANUEL and myself were present also. gave complete update and hx of entire admission and answered questions for four family members. Mary reports that pt has an advanced directive that is very clear that he would not want ongoing life support or invasive life saving measures at this time. All children spoke of pt's failing health from multiple causes prior to his covid infection. The meeting was very productive in outlining family goals and wishes. They do not want any more intensive or invasive measures employed but would like to cont tx as is for 1 more day. They do not want bronchoscopy or tracheostomy done. They are clear that Ciro would not want these procedures at this time either. After left, I answered additional questions re: current tx and comfort care. Later I received call from ICU that pt's cardiac rhythm and rate had changed and pt appeared to be losing HR. I contacted Mary to update and invite children in to visit. Cristina states she will come in. Pt is a DNR, which children clarified as code status of choice during family meeting. Screeners notified that pt could have up to four visitors this gene, even though he had already had one earlier today. Notched Blade Loader updated also. Pal care to continue supportive visits.
--- NOTE | 2020-10-04 18:17 | NUR ---
LATE ENTRY: 1630 PATIENT NOTED TO HAVE CHANGE IN RHYTHM, SATS DROPPING. MADE AWARE. UPON ENTERING ROOM, BP UNABLE TO READ, HEART TONES QUIET UNABLE TO FEEL PERIPHERAL PULSES. EKG DONE, NAME CALLED, NO RESPONSES FROM PATIENT. PALIATIVE CARE HERE, CALLED FAMILY. PT'S DAUGHTER CAME IN FIRST, BRANDON, NO CHANGES. SHE DID SHARE THAT HE HAS ALWAYS HAD A LAZY EYE IN THE LEFT, ESPECIALLY WHEN HE WAS TIRED. THE ONE SON JANAK AND DAUGHTER DI CAME. PT NOW OPENING HIS EYES TO SOUND. STILL NO MOVEMENT. PT WITH GOOD HEART RATE AND BLOOD PRESSURE. NOW ALL 4 CHILDREN WITH PATIENT. WILL CONTINUE TO MONITOR.
--- NOTE | 2020-10-04 20:15 | NUR ---
ASSUMED CARE RECEIVED FROM JENNA DUMONT. PT IS LYING IN ON BED ON LEFT SIDE, UNRESPONSIVE, INTUBATED ON VENTILATOR AT AC 24/430/10/100%. NO SEDATION. FENTANYL HAS BEEN GIVEN FOR RR > 35/MIN. REMAINS IN AFIB, RATE 90-120; BP INCONSISTENT, CUFF ON RIGHT LOWER LEG, BUT MAP > 60. AFEBRILE. RR 30s. PEAK PRESSURES 24-33; SPO2 98-100%. VARGAS PATENT DRAINING ORANGE CLOUDY URINE. HEPARIN INFUSING AT 24.5 UNITS/KG/HOUR (WEIGHT 83 KG; DOSE AND WEIGHT VERIFIED WITH ORDER). NS TKO AND CPN INFUSING AT 75 ML/HR - VIA PICC LINE, TEE SITE WNL; PG STAR SITE WNL AND SALINE LOCKED. BED LOW AND LOCKED.
--- NOTE | 2020-10-04 23:00 | NUR ---
UPDATE/PASSING OVER LAST HOUR OR SO THE PT's HR HAD BEEN TRENDING DOWNWARD, AND HIS RESPIRATIONS BECAME MORE IRREGULAR AND THE RATE HAD DECREASED. DI, THE PT'S DAUGHTER, HAD BEEN NOTIFIED (AROUND 2209) THE HR STARTED TO BECOME LESS THAN 70. AROUND 2230 THE PT WENT ASYSTOLE, WITH SOME WIDE IRREGULAR COMPLEXES SEEN OCCASSIONALLY THAT PRODUCED NO PULSE OR HEART BEAT (UPON AUSCULTATION). THIS RN, AND DAVID - RT, WERE AT BEDSIDE. PRONOUNCED TIME OF @ 2230; DI, WAS NOTIFIED AGAIN - AND SHE STATED SHE WOULD PASS ALONG THE WORD TO EVERYONE, AND GIVE ME A CALL BACK WITH THE HOME. THE HOSPITALIST AT THE TIME - MAXIMO, DR. MUSTAFA, AND DR. DICK HAVE BEEN NOTIFIED. THE DONOR LINE HAS BEEN NOTIFIED, AND HAS RELEASED THE PT.
--- NOTE | 2020-10-04 23:51 | NUR ---
ROQUE THOMASON [facility] - HOME SELECTED BY FAMILY IN [place], OR CALLED AT 2345, AWAITING TO HEAR BACK WITH A ETA FOR [employer]. PT TO BE TRANSFERRED TONIGHT, ONLY BELONGINGS THAT WERE STILL IN ROOM, WERE DENTURES (WILL BE GIVEN TO THE HOME). FAMILY HAD PICKED UP THE REST OF THE BELONGINGS EARLIER TODAY WHEN THEY HAD THEIR FAMILY MEETING WITH PALLIATIVE CARE. DI WAS APPRECIATIVE OF CARE, AND INSTRUCTED THAT IF THERE WERE ANY FURTHER QUESTIONS SHE COULD ANSWER, SHE IS HAPPY TO HELP. SHE IS NOTIFYING THE REST OF THE FAMILY AND IN CHARGE OF ARRANGEMENTS.
== END 2020-10-04 22:31 | DRG 870 ==
LOC: ER 15:07 → ICUE 18:17 → PCU 18:17 → ICUE 09-21 15:30
PROVIDERS: Emergency Medicine; Family Medicine; Internal Medicine Critical Care Medicine; Internal Medicine Pulmonary Disease; ADMIT Internal Medicine
PROC: 8E0ZXY6 Isolation (ICD-10-PCS; 2020-09-17)
PROC: XW033E5 Introduction of Remdesivir Anti-infective into Peripheral Vein, Percutaneous Approach, New Technology Group 5 (ICD-10-PCS; 2020-09-17)
PROC: 0BH18EZ Insertion of Endotracheal Airway into Trachea, Via Natural or Artificial Opening Endoscopic (ICD-10-PCS; principal; 2020-09-23)
PROC: 5A1955Z Respiratory Ventilation, Greater than 96 Consecutive Hours (ICD-10-PCS; 2020-09-23)
PROC: 3E0333Z Introduction of Anti-inflammatory into Peripheral Vein, Percutaneous Approach (ICD-10-PCS; 2020-09-23)
PROC: 02HV33Z Insertion of Infusion Device into Superior Vena Cava, Percutaneous Approach (ICD-10-PCS; 2020-09-27)
PROC: B548ZZA Ultrasonography of Superior Vena Cava, Guidance (ICD-10-PCS; 2020-09-27)
PROC: 0DJ08ZZ Inspection of Upper Intestinal Tract, Via Natural or Artificial Opening Endoscopic (ICD-10-PCS; 2020-09-29)
DX: A41.89 Other specified sepsis (principal); U07.1 COVID-19; J12.82 Pneumonia due to coronavirus disease 2019; J96.01 Acute respiratory failure with hypoxia; J15.6 Pneumonia due to other Gram-negative bacteria; K26.4 Chronic or unspecified duodenal ulcer with hemorrhage; I42.9 Cardiomyopathy, unspecified; F10.231 Alcohol dependence with withdrawal delirium; J81.1 Chronic pulmonary edema; I50.30 Unspecified diastolic (congestive) heart failure; Z87.891 Personal history of nicotine dependence; I48.91 Unspecified atrial fibrillation; Z79.899 Other long term (current) drug therapy; Z79.01 Long term (current) use of anticoagulants; Z98.890 Other specified postprocedural states; Z95.2 Presence of prosthetic heart valve; I27.20 Pulmonary hypertension, unspecified; I07.1 Rheumatic tricuspid insufficiency; I95.9 Hypotension, unspecified; D64.9 Anemia, unspecified; Z66 Do not resuscitate; E87.5 Hyperkalemia; R73.9 Hyperglycemia, unspecified
CPT/HCPCS: 0241U; 31500; 36415; 36430; 36600; 51702; 71045; 74018; 80048; 80053; 80202; 81001; 82330; 82803; 82947; 83615; 83735; 83880; 84100; 84132; 84145; 84484; 85014; 85018; 85025; 85027; 85379; 85610; 85730; 86850; 86900; 86901; 86920; 86923; 87040; 87070; 87077; 87186; 87205; 93005; 93010; 93306; 94002; 94003; 94640; 94762; 96361; 96374; 96375; 97162; 97166; 97530; 97535; 99285-25; A9270; C1751; C9113; J0171; J0282; J0295; J0330; J0456; J0696; J1100; J1430; J1644; J1940; J1956; J2060; J2185; J2354; J2370; J2405; J2704; J2765; J3010; J3370; J7030; J7040; J7050; J7060; J7120; P9016